=== PATIENT | male | born 1955 | race Caucasian/White ===

== ENCOUNTER → 2024-02-09 08:33 | Outpatient (REF) | payer OTHER, SELFPAY | LOC: RAD 08:33 | PROVIDERS: ATTENDING PHYSICIAN Family Medicine | DX: R63.4 Abnormal weight loss (principal) | CPT/HCPCS: 71046 ==

== ENCOUNTER → 2024-06-14 09:06 | Outpatient (REF) | payer OTHER, SELFPAY ==
[2024-06-14 09:30] VITALS: BP 154/81; BP_SYST 66
[2024-06-14 09:43] LABS: Hematocrit 38.8 % (39.0-52.0); Hemoglobin 12.2 g/dL (13.0-18.0); Mean Corp Hgb Conc. 31.4 g/dL (33.0-37.0); Mean Corpuscular Hgb 27.8 pg (27.0-31.0); Mean Corpuscular Volume 88.4 fL (80.0-94.0); Red Blood Cell Count 4.39 10^6/uL (4.70-6.10); Red Cell Dist. Width 18.7 % (11.5-14.5)
[2024-06-14 09:49] LABS: INR 0.98; PT 13.3 Sec (11.4-14.6)
[2024-06-14 10:17] LABS: Platelet Count 67 10^3/uL (130-400)
[2024-06-14 10:19] LABS: Absolute Neutrophils -Man Diff 1.1 10^3/uL (1.4-6.5); Atypical Lymphocytes 5 %; Band Neutrophils 3 % (0-3); Lymphocytes 47 % (20-51); Monocytes 11 % (2-9); Segmented Neutrophils 34 % (42-75)
[2024-06-14 10:20] LABS: Normal RBC Morphology Yes; Platelets Checked Yes; Total Cells Counted 100
[2024-06-14 10:50] VITALS: BP 129/81; BP_SYST 62
[2024-06-14 10:55] VITALS: BP 135/71; BP_SYST 65
== END ==
LOC: RADI 09:06
PROVIDERS: ATTENDING PHYSICIAN Internal Medicine Hematology & Oncology; FAMILY PHYSICIAN Family Medicine
DX: D69.6 Thrombocytopenia, unspecified (principal); D64.9 Anemia, unspecified
CPT/HCPCS: 88305; 88311; 88312; 36415; 38222; 77012; 85025; 85610; 88313

== ENCOUNTER 2024-09-20 14:13 | Emergency (ER) | payer OTHER, SELFPAY ==
[2024-09-20 14:14] VITALS: BP 176/90
[2024-09-20 14:51] LABS: ALT (SGPT) 30 U/L (0-50); AST (SGOT) 29 U/L (17-59); Albumin 4.9 g/dl (3.5-5.0); Alkaline Phosphatase 60 U/L (38-126); Blood Urea Nitrogen 21 mg/dl (9-20); Calcium 9.2 mg/dl (8.4-10.2); Carbon Dioxide 26 mmol/L (22-30); Chloride 108 mmol/L (98-107); Glucose 116 mg/dl (70-99); Potassium 4.4 mmol/L (3.5-5.1); Sodium 141 mmol/L (135-145); Total Bilirubin 0.9 mg/dl (0.2-1.3); Total Protein 7.4 g/dl (6.3-8.2); eGFR > 60.00
[2024-09-20 14:52] LABS: Hematocrit 23.5 % (39.0-52.0); Hemoglobin 7.4 g/dL (13.0-18.0); Mean Corp Hgb Conc. 31.5 g/dL (33.0-37.0); Mean Corpuscular Hgb 29.5 pg (27.0-31.0); Mean Corpuscular Volume 93.6 fL (80.0-94.0); Red Blood Cell Count 2.51 10^6/uL (4.70-6.10); Red Cell Dist. Width 25.1 % (11.5-14.5); White Blood Cell Count 3.9 10^3/uL (4.8-10.8)
[2024-09-20 15:16] LABS: Platelet Count 4 10^3/uL (130-400)
[2024-09-20 15:47] LABS: Band Neutrophils 0 % (0-3); Pathologist Reviewed Yes; Segmented Neutrophils 23 % (42-75)
[2024-09-20 15:48] LABS: Lymphocytes 44 % (20-51); Metamyelocytes 1 % (-); Monocytes 2 % (2-9); Platelets Checked Yes
[2024-09-20 15:49] LABS: Anisocytosis 3+; Macrocytosis 1+; Microcytosis 2+; Normal RBC Morphology No
[2024-09-20 15:50] LABS: Hypochromasia 2+
[2024-09-20 15:51] LABS: Total Cells Counted 100
[2024-09-20 15:57] LABS: Absolute Neutrophils -Man Diff 0.8 10^3/uL (1.4-6.5); Blasts 30 % (-)
[2024-09-20 15:58] VITALS: BMI 23.0
[2024-09-20 17:45] LABS: LDH 413 U/L (120-246)
[2024-09-20 18:00] LABS: INR 1.11; PT 14.6 Sec (11.4-14.6)
[2024-09-20 18:01] LABS: APTT 31.5 Sec (23.4-35.0); Fibrinogen 262 MG/DL (199-459)
--- NOTE | 2024-09-20 18:06 | ED.GENMED ---
History of Present Illness
General
Chief Complaint: Abnormal Lab Value
Source: patient and family
Exam Limitations: none
Time Seen by Provider: 09/20/24 16:05
Nursing documentation reviewed up to this point in time: agreed with
History of Present Illness
History of Present Illness:
Patient sent to ED for report of Hgb 7.4, platelets 4. He was diagnosed with MDS in Apr, follows with [facility]. He states oncology is continuing to monitor his labs. He had outpatient labs earlier this week as ordered by his rheumatololgist. He
was notified by box printing machine operator that his labs were concerning andt come to ED. He reports he feels well, has no complaints. notes increased bruising over the past 2 weeks.
Past History
Past History
ED Past Medical History: Other (MDS)
Review of Systems
Review of Systems
Allergies reviewed?: Yes
All Other Systems: ROS reviewed and negative except as documented in HPI and ROS
Constitutional: Reports no symptoms
EENT: Reports no symptoms
Respiratory: Reports no symptoms
Cardiac: Reports no symptoms
ABD/GI: Reports no symptoms
: Reports no symptoms
Musculoskeletal: Reports no symptoms
Skin: Reports no symptoms ( notes increased bruising over the past 2 weeks)
Neurological: Reports no symptoms
Psychiatric: Reports no symptoms
Phy Exam
General Physical Exam
General Presentation: well appearing and no apparent distress
General age: appears stated age
General Skin: warm and dry
General Habitus: normal
General Mental: alert
Cardiovascular Exam
Cardiovascular Exam: regular rate/rhythm and no edema
Pulmonary Exam
Pulmonary Exam: lungs clear and no respiratory distress
Gastrointestinal Exam
Gastrointestinal Exam: normal bowel sounds, non tender and soft
Neurological Exam
Neurological Exam: alert, oriented x3, CN II-XII intact, no motor deficits, no sensory deficits, speech normal and normal gait
Musculoskeletal Exam
Musculoskeletal Exam: full ROM and neuro vasc intact
Skin Exam
Skin Exam: normal color, warm/dry and other (multiple bruises noted to bilateral arms, left lateralhip. No active bleeding.)
Psychiatric Exam
Psychiatric Exam: normal mood/affect
Course
Orders/Labs/Results
Orders:
Orders
09/20/24 14:25
Type And Crossmatch [Type+Screen] Urgent
Complete Blood Count/With Diff Urgent
Comprehensive Metabolic Panel Urgent
Manual Differential Urgent
09/20/24 17:17
D-Dimer Urgent
Fibrinogen Urgent
LDH Urgent
PTT Urgent
Prothrombin Time Urgent
09/20/24 17:44
* Blood Bank Products Urgent
Blood Bank Products: Platelets Leukoreduced
Quantity: 2
Transfuse Today: Yes
Reason: Thrombocytopenia
Abnormal Lab Results
09/20/24 09/20/24
14:25 17:17
WBC 3.9 L 10^3/uL
(4.8-10.8)
RBC 2.51 L 10^6/uL
(4.70-6.10)
Hgb 7.4 L g/dL
(13.0-18.0)
Hct 23.5 L %
(39.0-52.0)
MCHC 31.5 L g/dL
(33.0-37.0)
RDW 25.1 H %
(11.5-14.5)
Plt Count 4 L* 10^3/uL
(130-400)
Abs Neuts (Manual) 0.8 L* 10^3/uL
(1.4-6.5)
Segmented Neutrophils 23 L %
(42-75)
Blast Cells 30 H* %
(-)
Chloride 108 H mmol/L
(98-107)
BUN 21 H mg/dl
(9-20)
Glucose 116 H mg/dl
(70-99)
Lactate Dehydrogenase 413 H U/L
(120-246)
09/20/24 14:25
09/20/24 14:25
Vital Signs
Initial and Last Documented VS:
Initial Vital Signs
Temp Pulse Resp BP Pulse Ox
98.2 F 100 18 176/90 100
09/20/24 14:14 09/20/24 14:14 09/20/24 14:14 09/20/24 14:14 09/20/24 14:14
Last Documented Vital Signs
Temp Pulse Resp BP Pulse Ox
98.2 F 75 14 125/59 99
09/20/24 20:35 09/20/24 20:35 09/20/24 20:35 09/20/24 20:35 09/20/24 20:35
*Critical Care Note
Total Time (30-74mins, 75-104mins- exclusive of procedures): Not Applicable
Update Note
Update Note:
Patient to ED for eval of abnormal outpatient labs. WBC 7.4, platelets 4 WBC 3.9, RBC 2.5 Abs neut 0.8 segs 23% Blasts 30%. Discussed lab results with Dr. Carreno. Now concern for ALL, she requests transfer to [facility]. Case discussed with Dr. Reyez
at [facility] who accepts transfer. Will transfuse 2u platelets now. DIC labs pending (request of Dr. carreno). Patient remains afebrile, no active bleeding. Discussed plan with patient and spouse and they are agreeable to plan.
ED Attending Note
-
Portions of this chart may have been created with voice recognition software.� Occasional wrong word or��sound alike� substitutions may have occurred due to the inherent limitations of voice recognition software.
Discharge Plan
Departure
Patient Disposition: Acute Care Hospital
Date of Disposition: 09/20/24
Time of Disposition: 18:05
Discharge Problem:
ALL (acute lymphocytic leukemia)
Prescriptions:
No Action
acetaminophen [Tylenol Extra Strength] 500 mg Tablet
1,000 mg PO TIDPRN PRN (Reason: mild pain)
Liver-Kidney Cleanser Capsule
1 cap PO DAILY
cyanocobalamin (vitamin B-12) 500 mcg Tablet, Sublingual
500 mcg SUBLINGUAL DAILY
[place] Tail Capsules
1 cap PO DAILY
Referrals:
Ortiz Arias MD [Family Provider] -
Hospital Transfer
Other hospital: [facility]
I certify that the patient requires transfer: Yes
Discussed case with accepting physician: Dereje
Reason for transfer: higher level of care
Interventions
Interventions:
*Risk Screen - Suicide Last Done: 09/20/24 14:14
*General Assessment Last Done: 09/20/24 14:14
*Neglect/Abuse Screening Last Done: 09/20/24 16:45
*ED- Fall Risk Assessment Last Done: 09/20/24 15:47
*ED COVID-19 Vaccine History Last Done: 09/20/24 15:47
*Nursing Disposition Last Done: 09/20/24 21:25
Discharge Date and Time
Discharge Date/Time: 09/20/24 21:25
Print Language: URDU
[2024-09-20 18:14] LABS: D-Dimer 0.37 ug/mlFEU (0.00-0.50)
[2024-09-20 18:16] VITALS: BP 147/63
[2024-09-20 18:32] VITALS: BP 147/63
[2024-09-20 18:50] VITALS: BP 142/61
[2024-09-20 19:23] VITALS: BP 139/65
--- NOTE | 2024-09-20 20:18 | EDRN ---
Jessica from [facility] called for report which consisted of her asking questions of this RN. Questions answered
[2024-09-20 20:35] VITALS: BP 125/59
--- NOTE | 2024-09-20 21:23 | EDRN ---
Report given to Acute Care crew
== END 2024-09-20 21:25 | disposition short-term general hospital (02) ==
LOC: EMR 14:13
PROVIDERS: Nurse Practitioner; EMERGENCY PHYSICIAN Emergency Medicine; FAMILY PHYSICIAN Family Medicine
DX: C91.00 Acute lymphoblastic leukemia not having achieved remission (principal); D46.9 Myelodysplastic syndrome, unspecified; D69.6 Thrombocytopenia, unspecified
CPT/HCPCS: 99283; 36430; 80053; 83615; 85025; 85379; 85384; 85610; 85730; 86850; 86900; 86901; P9073

== ENCOUNTER 2024-10-06 20:13 | Emergency (ER) | payer OTHER, SELFPAY ==
[2024-10-06 20:15] VITALS: BP 128/78
[2024-10-06 20:44] VITALS: BP 135/73
--- NOTE | 2024-10-06 21:11 | ED.GENMED ---
History of Present Illness
General
Chief Complaint: Catheter/Tube Problem
Time Seen by Provider: 10/06/24 20:42
History of Present Illness
History of Present Illness:
69-year-old male presents the emergency department for malfunction of his PICC line. It appears that he accidentally cut the extension tubing. IV team at bedside upon my evaluation he denies other complaints
Past History
Past History
ED Past Medical History: Other (MDS)
Review of Systems
Review of Systems
Allergies reviewed?: Yes
All Other Systems: ROS reviewed and negative except as documented in HPI and ROS
Phy Exam
Physical Exam
Physical Exam:
GEN: Well appearing, NAD, WDWN
HEENT: Oral mucosa moist, no scleral icterus
Cardiac: Regular rate
Lung: No respiratory distress, no tachypnea
MSK: No gross deformity or injuries, PICC line in the right upper extremity, site is clean dry and intact
Skin: Good color, no pallor or jaundice, no rashes
Neuro: AO x3, moves all extremities freely
Psych: Calm, cooperative
Course
Vital Signs
Initial and Last Documented VS:
Initial Vital Signs
Temp Pulse Resp BP Pulse Ox
98.4 F 95 16 128/78 98
10/06/24 20:15 10/06/24 20:15 10/06/24 20:15 10/06/24 20:15 10/06/24 20:15
Last Documented Vital Signs
Temp Pulse Resp BP Pulse Ox
98.4 F 86 16 135/73 99
10/06/24 20:15 10/06/24 20:44 10/06/24 20:44 10/06/24 20:44 10/06/24 20:44
MDM/Problems Addressed
MDM/Problems Addressed:
PICC line extension tubing corrected by IV team, patient with no other complaints
*Critical Care Note
Total Time (30-74mins, 75-104mins- exclusive of procedures): Not Applicable
ED Attending Note
-
Portions of this chart may have been created with voice recognition software.� Occasional wrong word or��sound alike� substitutions may have occurred due to the inherent limitations of voice recognition software.
Discharge Plan
Departure
Patient Disposition: Home (Routine Discharge)
Date of Disposition: 10/06/24
Time of Disposition: 21:11
Patient with high blood pressure during this ER visit?: No
Discharge Problem:
Status post PICC central line placement
Instructions: How to care for a peripherally inserted central catheter (PICC)
Prescriptions:
No Action
acetaminophen [Tylenol Extra Strength] 500 mg Tablet
1,000 mg PO TIDPRN PRN (Reason: mild pain)
Liver-Kidney Cleanser Capsule
1 cap PO DAILY
cyanocobalamin (vitamin B-12) 500 mcg Tablet, Sublingual
500 mcg SUBLINGUAL DAILY
[place] Tail Capsules
1 cap PO DAILY
Interventions
Interventions:
*Risk Screen - Suicide Last Done: 10/06/24 20:15
*General Assessment Last Done: 10/06/24 20:15
*Neglect/Abuse Screening Last Done: 10/06/24 20:15
*ED- Fall Risk Assessment Last Done: 10/06/24 20:34
*ED COVID-19 Vaccine History Last Done: 10/06/24 20:34
*Nursing Disposition Last Done: 10/06/24 21:20
Discharge Date and Time
Discharge Date/Time: 10/06/24 21:21
Print Language: SAMMARINESE
--- NOTE | 2024-10-06 21:13 | VATNOTE ---
VAT asked to assess patient's right PICC as patient accidently cut extension tubing. PICC in tact with dressing clean dry and intact. Under purple lumen of picc extension tubing was missing. Patient brought his own new set of extension tubing.
Tubing was primed with NSS, end of picc sterilized with several chlorhexidine swabs. PICC was then attached to extension tubing, flushed with a positive BR. Primary RN updated.
== END 2024-10-06 21:21 | disposition home or self-care (01) ==
LOC: EMR 20:13
PROVIDERS: EMERGENCY PHYSICIAN Student in an Organized Health Care Education/Training Program; FAMILY PHYSICIAN Family Medicine
DX: Z45.2 Encounter for adjustment and management of vascular access device (principal)
CPT/HCPCS: 99282

== ENCOUNTER → 2024-10-16 10:01 | Outpatient (REF) | payer OTHER, SELFPAY | LOC: HWRAD 10:01 | PROVIDERS: ATTENDING PHYSICIAN Internal Medicine Hematology & Oncology; FAMILY PHYSICIAN Family Medicine | DX: R22.42 Localized swelling, mass and lump, left lower limb (principal) | CPT/HCPCS: 93971 ==

== ENCOUNTER 2024-11-04 08:16 | Outpatient (RCR) | payer OTHER, SELFPAY ==
[2024-10-14 10:46] VITALS: BP 112/59
[2024-10-14 11:40] LABS: ALT (SGPT) 25 U/L (0-50); AST (SGOT) 21 U/L (17-59); Albumin 4.3 g/dl (3.5-5.0); Alkaline Phosphatase 62 U/L (38-126); Blood Urea Nitrogen 18 mg/dl (9-20); Calcium 9.1 mg/dl (8.4-10.2); Carbon Dioxide 26 mmol/L (22-30); Chloride 110 mmol/L (98-107); Glucose 135 mg/dl (70-99); Potassium 4.1 mmol/L (3.5-5.1); Sodium 142 mmol/L (135-145); Total Bilirubin 1.1 mg/dl (0.2-1.3); Total Protein 6.7 g/dl (6.3-8.2); eGFR > 60.00
[2024-10-14 12:47] LABS: Hematocrit 22.1 % (39.0-52.0); Hemoglobin 7.5 g/dL (13.0-18.0); Mean Corp Hgb Conc. 33.9 g/dL (33.0-37.0); Mean Corpuscular Volume 88.4 fL (80.0-94.0); Platelet Count 10 10^3/uL (130-400); Red Cell Dist. Width 16.4 % (11.5-14.5); White Blood Cell Count 0.8 10^3/uL (4.8-10.8)
[2024-10-14 12:48] LABS: Band Neutrophils 0 % (0-3); Blasts 8 % (-); Lymphocytes 84 % (20-51); Monocytes 2 % (2-9); Segmented Neutrophils 6 % (42-75)
[2024-10-14 12:49] LABS: Anisocytosis 1+; Normal RBC Morphology No; Platelets Checked Yes
[2024-10-14 12:50] LABS: Hypochromasia 1+
[2024-10-14 12:51] LABS: Total Cells Counted 100
[2024-10-15] VITALS (8 sets, daily range): BP systolic 122–139; BP diastolic 45–70
[2024-10-21 09:41] VITALS: BP 129/55
[2024-10-21 10:58] LABS: Hematocrit 22.9 % (39.0-52.0); Hemoglobin 7.6 g/dL (13.0-18.0); Mean Corp Hgb Conc. 33.2 g/dL (33.0-37.0); Mean Corpuscular Hgb 29.3 pg (27.0-31.0); Mean Corpuscular Volume 88.4 fL (80.0-94.0); Platelet Count 9 10^3/uL (130-400); Red Blood Cell Count 2.59 10^6/uL (4.70-6.10); Red Cell Dist. Width 14.6 % (11.5-14.5); White Blood Cell Count 0.7 10^3/uL (4.8-10.8)
[2024-10-21 11:47] LABS: ALT (SGPT) 15 U/L (0-50); AST (SGOT) 15 U/L (17-59); Albumin 3.9 g/dl (3.5-5.0); Alkaline Phosphatase 53 U/L (38-126); Blood Urea Nitrogen 14 mg/dl (9-20); Calcium 8.2 mg/dl (8.4-10.2); Carbon Dioxide 21 mmol/L (22-30); Chloride 114 mmol/L (98-107); Glucose 127 mg/dl (70-99); Magnesium 1.9 mg/dl (1.6-2.3); Potassium 3.3 mmol/L (3.5-5.1); Sodium 143 mmol/L (135-145); Total Protein 5.7 g/dl (6.3-8.2); eGFR > 60.00
[2024-10-21 14:25] LABS: Band Neutrophils 0 % (0-3); Lymphocytes 82 % (20-51); Monocytes 3 % (2-9); Segmented Neutrophils 4 % (42-75)
[2024-10-21 14:26] LABS: Blasts 11 % (-); Platelets Checked Yes
[2024-10-21 14:27] LABS: Normal RBC Morphology No
[2024-10-21 14:28] LABS: Acanthocytes FEW; Anisocytosis Slight; Hypochromasia 1+; Ovalocytes Slight; Total Cells Counted 100
[2024-10-22] VITALS (7 sets, daily range): BP systolic 109–139; BP diastolic 49–64
[2024-10-24 11:15] LABS: ALT (SGPT) 15 U/L (0-50); AST (SGOT) 15 U/L (17-59); Albumin 4.2 g/dl (3.5-5.0); Alkaline Phosphatase 59 U/L (38-126); Blood Urea Nitrogen 14 mg/dl (9-20); Calcium 9.3 mg/dl (8.4-10.2); Carbon Dioxide 24 mmol/L (22-30); Chloride 109 mmol/L (98-107); Glucose 133 mg/dl (70-99); Magnesium 1.8 mg/dl (1.6-2.3); Potassium 4.1 mmol/L (3.5-5.1); Sodium 141 mmol/L (135-145); Total Protein 6.6 g/dl (6.3-8.2); eGFR > 60.00
[2024-10-24 11:17] LABS: Hematocrit 21.4 % (39.0-52.0); Hemoglobin 7.6 g/dL (13.0-18.0); Mean Corp Hgb Conc. 35.5 g/dL (33.0-37.0); Mean Corpuscular Hgb 30.8 pg (27.0-31.0); Mean Corpuscular Volume 86.6 fL (80.0-94.0); Red Blood Cell Count 2.47 10^6/uL (4.70-6.10); Red Cell Dist. Width 14.5 % (11.5-14.5)
[2024-10-24 11:18] LABS: Anisocytosis Slight; Band Neutrophils 0 % (0-3); Hypochromasia 1+; Lymphocytes 83 % (20-51); Monocytes 2 % (2-9); Normal RBC Morphology No; Platelets Checked Yes; Segmented Neutrophils 9 % (42-75); Total Cells Counted 100
[2024-10-24 11:20] LABS: Blasts 6 % (-); Platelet Count 6 10^3/uL (130-400); White Blood Cell Count 0.9 10^3/uL (4.8-10.8)
[2024-10-25 10:40] VITALS: BP 127/68
[2024-10-25 11:01] VITALS: BP 114/50
[2024-10-25 11:36] VITALS: BP 112/51
[2024-10-25 12:00] VITALS: BP 112/51
[2024-10-25 12:15] VITALS: BP 116/44
[2024-10-25 14:15] VITALS: BP 110/51
[2024-10-28 10:18] VITALS: BP 115/58
[2024-10-28 11:06] LABS: ALT (SGPT) 13 U/L (0-50); AST (SGOT) 15 U/L (17-59); Albumin 4.2 g/dl (3.5-5.0); Alkaline Phosphatase 59 U/L (38-126); Blood Urea Nitrogen 13 mg/dl (9-20); Calcium 8.8 mg/dl (8.4-10.2); Carbon Dioxide 24 mmol/L (22-30); Chloride 108 mmol/L (98-107); Glucose 110 mg/dl (70-99); Potassium 4.1 mmol/L (3.5-5.1); Sodium 140 mmol/L (135-145); Total Bilirubin 0.9 mg/dl (0.2-1.3); Total Protein 6.5 g/dl (6.3-8.2); eGFR > 60.00
[2024-10-28 11:09] LABS: Hematocrit 23.3 % (39.0-52.0); Hemoglobin 7.9 g/dL (13.0-18.0); Mean Corp Hgb Conc. 33.9 g/dL (33.0-37.0); Mean Corpuscular Hgb 30.4 pg (27.0-31.0); Mean Corpuscular Volume 89.6 fL (80.0-94.0); Red Cell Dist. Width 14.3 % (11.5-14.5)
[2024-10-28 11:23] LABS: Absolute Neutrophils -Man Diff 0.5 10^3/uL (1.4-6.5); Band Neutrophils 2 % (0-3); Blasts 9 % (-); Lymphocytes 57 % (20-51); Mean Platelet Volume 9.9 fL (7.4-10.4); Metamyelocytes 2 % (-); Monocytes 8 % (2-9); Normal RBC Morphology No; Platelet Count 6 10^3/uL (130-400); Platelets Checked Yes; Segmented Neutrophils 22 % (42-75); White Blood Cell Count 2.3 10^3/uL (4.8-10.8)
[2024-10-28 11:24] LABS: Anisocytosis 1+; Hypochromasia 1+; Polychromasia Slight; Total Cells Counted 100
[2024-10-29] VITALS (7 sets, daily range): BP systolic 112–117; BP diastolic 53–57
[2024-10-30 09:27] VITALS: BP 120/57
[2024-10-30 09:39] LABS: Hemoglobin 9.1 g/dL (13.0-18.0); Mean Corp Hgb Conc. 33.7 g/dL (33.0-37.0); Mean Corpuscular Hgb 30.5 pg (27.0-31.0); Mean Corpuscular Volume 90.6 fL (80.0-94.0); Platelet Count 11 10^3/uL (130-400); Red Blood Cell Count 2.98 10^6/uL (4.70-6.10); Red Cell Dist. Width 14.5 % (11.5-14.5)
[2024-10-30 09:43] LABS: ALT (SGPT) 14 U/L (0-50); AST (SGOT) 16 U/L (17-59); Albumin 4.6 g/dl (3.5-5.0); Alkaline Phosphatase 64 U/L (38-126); Blood Urea Nitrogen 14 mg/dl (9-20); Carbon Dioxide 25 mmol/L (22-30); Chloride 111 mmol/L (98-107); Glucose 99 mg/dl (70-99); Potassium 4.1 mmol/L (3.5-5.1); Sodium 142 mmol/L (135-145); Total Bilirubin 0.9 mg/dl (0.2-1.3); Total Protein 6.8 g/dl (6.3-8.2); eGFR > 60.00
[2024-10-30 09:45] VITALS: BP 115/52
[2024-10-30 10:21] VITALS: BP 120/47
[2024-10-30] MEDS: ALOXI 5 MG IV (10:55)
[2024-10-30] MEDS: DECADRON 50.8 MG IV (10:55)
[2024-10-30 11:00] LABS: Absolute Neutrophils -Man Diff 1.1 10^3/uL (1.4-6.5); Band Neutrophils 2 % (0-3); Lymphocytes 56 % (20-51); Monocytes 6 % (2-9); Segmented Neutrophils 36 % (42-75)
[2024-10-30 11:01] LABS: Anisocytosis 1+; Hypochromasia 1+; Normal RBC Morphology No; Ovalocytes 1+; Platelets Checked Yes; Polychromasia 1+
[2024-10-30 11:02] LABS: Total Cells Counted 100
[2024-10-30] MEDS: VIDAZA 114.8 MG IV (11:25)
[2024-10-31 09:04] VITALS: BP 118/51
[2024-10-31] MEDS: VIDAZA 114.8 MG IV (09:14)
[2024-10-31 09:19] LABS: Hematocrit 26.8 % (39.0-52.0); Hemoglobin 9.2 g/dL (13.0-18.0); Mean Corp Hgb Conc. 34.3 g/dL (33.0-37.0); Mean Corpuscular Hgb 31.3 pg (27.0-31.0); Mean Corpuscular Volume 91.2 fL (80.0-94.0); Mean Platelet Volume 9.4 fL (7.4-10.4); Platelet Count 18 10^3/uL (130-400); Red Blood Cell Count 2.94 10^6/uL (4.70-6.10); Red Cell Dist. Width 15.7 % (11.5-14.5)
[2024-10-31 10:16] LABS: Absolute Neutrophils -Man Diff 2.2 10^3/uL (1.4-6.5); Band Neutrophils 1 % (0-3); Blasts 10 % (-); Lymphocytes 23 % (20-51); Metamyelocytes 1 % (-); Monocytes 10 % (2-9); Segmented Neutrophils 55 % (42-75)
[2024-10-31 10:17] LABS: Anisocytosis 1+; Hypochromasia 1+; Normal RBC Morphology No; Platelets Checked Yes; Polychromasia 1+
[2024-10-31 10:18] LABS: Acanthocytes 1+; Total Cells Counted 100
[2024-10-31 10:43] VITALS: BP 118/51
[2024-10-31 11:02] VITALS: BP 119/56
[2024-10-31 11:41] VITALS: BP 117/51
[2024-11-01 09:04] VITALS: BP 122/58
[2024-11-01 09:15] LABS: Hematocrit 26.5 % (39.0-52.0); Hemoglobin 8.9 g/dL (13.0-18.0); Mean Corp Hgb Conc. 33.6 g/dL (33.0-37.0); Mean Corpuscular Hgb 31.3 pg (27.0-31.0); Mean Corpuscular Volume 93.3 fL (80.0-94.0); Mean Platelet Volume 10.1 fL (7.4-10.4); Platelet Count 24 10^3/uL (130-400); Red Blood Cell Count 2.84 10^6/uL (4.70-6.10); White Blood Cell Count 2.9 10^3/uL (4.8-10.8)
[2024-11-01] MEDS: VIDAZA 114.8 MG IV (09:17)
[2024-11-01 09:57] LABS: % Basophils 0.3 % (0-2); % Lymphocytes 31.4 % (20.5-51.1); % Monocytes 15.3 % (1.7-9.3); Absolute Lymphocytes 0.9 10^3/uL (1.2-3.4); Absolute Monocytes 0.4 10^3/uL (0.1-0.6); Absolute Neutrophils 1.5 10^3/uL (1.4-6.5); Nucleated Red Blood Cells % 0 % (-)
[2024-11-01 10:48] VITALS: BP 102/49
[2024-11-01 11:06] VITALS: BP 120/41
[2024-11-01 11:51] VITALS: BP 107/49
[2024-11-04 08:30] VITALS: BP 129/65
[2024-11-04 09:34] LABS: Hematocrit 29.7 % (39.0-52.0); Hemoglobin 9.9 g/dL (13.0-18.0); Mean Corp Hgb Conc. 33.3 g/dL (33.0-37.0); Mean Corpuscular Hgb 31.8 pg (27.0-31.0); Mean Corpuscular Volume 95.5 fL (80.0-94.0); Red Blood Cell Count 3.11 10^6/uL (4.70-6.10); Red Cell Dist. Width 18.7 % (11.5-14.5)
[2024-11-04 09:51] LABS: Mean Platelet Volume 11.9 fL (7.4-10.4); Monocytes 5 % (2-9); Platelet Count 32 10^3/uL (130-400)
[2024-11-04] MEDS: VIDAZA 114.8 MG IV (09:55)
[2024-11-04] MEDS: ALOXI 5 MG IV (09:55)
[2024-11-04 09:59] LABS: Absolute Neutrophils -Man Diff 1.7 10^3/uL (1.4-6.5); Band Neutrophils 3 % (0-3); Lymphocytes 29 % (20-51); Segmented Neutrophils 56 % (42-75)
[2024-11-04 10:00] LABS: Acanthocytes 1+; Anisocytosis 1+; Blasts 2 % (-); Eosinophils 5 % (0-6); Hypochromasia 1+; Normal RBC Morphology No; Ovalocytes 1+; Platelets Checked Yes; Polychromasia 1+; Total Cells Counted 100
--- NOTE | 2024-11-04 10:38 | SURV.CONR ---
Survivorship Consultation
- -
Met patient at bedside. Referral received from Tiera MARCANO RN. Patient currently undergoing treatment for AML. Feeling well with exception of fatigue at times, achilles tendinitis, and neuropathy to feet. Platelet count today 32. Discussed
rest for achilles and ice which he states he has been doing. Has appt with Dr. Matias today to discuss next steps in treatment and possible transplant. Discussed limited options for achilles given DVT and thombocytopenia. Has developed neuropathy
to feet. Will continue to follow.
== END 2024-11-04 14:22 | disposition home or self-care (01) ==
LOC: OID 08:16
PROVIDERS: ATTENDING PHYSICIAN Internal Medicine Hematology & Oncology; FAMILY PHYSICIAN Family Medicine
DX: Z51.11 Encounter for antineoplastic chemotherapy (principal); D69.6 Thrombocytopenia, unspecified (principal); D46.9 Myelodysplastic syndrome, unspecified; D64.9 Anemia, unspecified; D72.819 Decreased white blood cell count, unspecified; M35.3 Polymyalgia rheumatica; Z87.891 Personal history of nicotine dependence
CPT/HCPCS: 36430; 36591; 80053; 83735; 85025; 86850; 86900; 86901; 86920; 96367; 96375; 96413; J2469; J9025; P9058; P9073

== ENCOUNTER 2024-12-05 08:50 | Outpatient (RCR) | payer OTHER, SELFPAY ==
[2024-11-05 08:30] VITALS: BP 133/57; BMI 22.3
[2024-11-05] MEDS: VIDAZA 114.8 MG IV (09:10)
[2024-11-05 10:16] LABS: Hematocrit 30.2 % (39.0-52.0); Hemoglobin 10.0 g/dL (13.0-18.0); Mean Corp Hgb Conc. 33.1 g/dL (33.0-37.0); Mean Corpuscular Volume 95.9 fL (80.0-94.0); Nucleated Red Blood Cells % 0 % (-); Platelet Count 28 10^3/uL (130-400); Red Cell Dist. Width 19.5 % (11.5-14.5)
[2024-11-06 09:15] VITALS: BP 130/62
[2024-11-06 09:29] LABS: Hematocrit 30.0 % (39.0-52.0); Hemoglobin 10.0 g/dL (13.0-18.0); Mean Corp Hgb Conc. 33.3 g/dL (33.0-37.0); Mean Corpuscular Volume 95.5 fL (80.0-94.0); Nucleated Red Blood Cells % 0 % (-); Platelet Count 31 10^3/uL (130-400); Red Cell Dist. Width 19.9 % (11.5-14.5)
[2024-11-06] MEDS: ALOXI 5 MG IV (09:29)
[2024-11-06] MEDS: VIDAZA 114.8 MG IV (09:30)
[2024-11-07 08:30] VITALS: BP 135/69
[2024-11-07] MEDS: VIDAZA 114.8 MG IV (09:00)
[2024-11-07 09:31] LABS: Hematocrit 29.8 % (39.0-52.0); Hemoglobin 10.0 g/dL (13.0-18.0); Mean Corp Hgb Conc. 33.6 g/dL (33.0-37.0); Mean Corpuscular Volume 94.6 fL (80.0-94.0); Nucleated Red Blood Cells % 0 % (-); Platelet Count 35 10^3/uL (130-400); Red Cell Dist. Width 20.2 % (11.5-14.5)
[2024-11-11 10:06] VITALS: BP 126/58
[2024-11-11 11:45] LABS: Hematocrit 31.0 % (39.0-52.0); Hemoglobin 10.3 g/dL (13.0-18.0); Mean Corp Hgb Conc. 33.2 g/dL (33.0-37.0); Mean Corpuscular Volume 97.8 fL (80.0-94.0); Red Cell Dist. Width 21.3 % (11.5-14.5)
[2024-11-11 11:59] LABS: Nucleated Red Blood Cells % 0 % (-); Platelet Count 56 10^3/uL (130-400)
[2024-11-14 09:02] VITALS: BP 141/75
[2024-11-14 09:50] LABS: Hematocrit 31.7 % (39.0-52.0); Hemoglobin 10.6 g/dL (13.0-18.0); Mean Corp Hgb Conc. 33.4 g/dL (33.0-37.0); Mean Corpuscular Volume 96.9 fL (80.0-94.0); Platelet Count 55 10^3/uL (130-400); Red Cell Dist. Width 22.0 % (11.5-14.5)
[2024-11-14 10:54] LABS: Nucleated Red Blood Cells % 0 % (-)
[2024-11-18 09:21] VITALS: BP 140/71
[2024-11-18 10:19] LABS: Hematocrit 29.9 % (39.0-52.0); Hemoglobin 10.2 g/dL (13.0-18.0); Mean Corp Hgb Conc. 34.1 g/dL (33.0-37.0); Mean Corpuscular Volume 100.0 fL (80.0-94.0); Platelet Count 32 10^3/uL (130-400); Red Cell Dist. Width 21.6 % (11.5-14.5)
[2024-11-18 10:56] LABS: Nucleated Red Blood Cells % 0 % (-)
[2024-11-18 12:24] LABS: ALT (SGPT) 16 U/L (0-50); AST (SGOT) 19 U/L (17-59); Albumin 4.6 g/dl (3.5-5.0); Alkaline Phosphatase 55 U/L (38-126); Blood Urea Nitrogen 14 mg/dl (9-20); Calcium 8.9 mg/dl (8.4-10.2); Carbon Dioxide 25 mmol/L (22-30); Chloride 108 mmol/L (98-107); Estimated Creatinine Clearance 122 ml/min; Glucose 100 mg/dl (70-99); Magnesium 2.0 mg/dl (1.6-2.3); Potassium 4.0 mmol/L (3.5-5.1); Sodium 139 mmol/L (135-145); Total Protein 6.5 g/dl (6.3-8.2); eGFR > 60.00
[2024-11-21 09:15] VITALS: BP 145/61
[2024-11-21 09:30] LABS: Hematocrit 30.0 % (39.0-52.0); Hemoglobin 9.9 g/dL (13.0-18.0); Mean Corp Hgb Conc. 33.0 g/dL (33.0-37.0); Mean Corpuscular Volume 103.1 fL (80.0-94.0); Platelet Count 25 10^3/uL (130-400); Red Cell Dist. Width 21.6 % (11.5-14.5)
[2024-11-21 11:17] LABS: ALT (SGPT) 17 U/L (0-50); AST (SGOT) 19 U/L (17-59); Albumin 4.4 g/dl (3.5-5.0); Alkaline Phosphatase 58 U/L (38-126); Blood Urea Nitrogen 17 mg/dl (9-20); Calcium 9.4 mg/dl (8.4-10.2); Carbon Dioxide 25 mmol/L (22-30); Chloride 110 mmol/L (98-107); Estimated Creatinine Clearance 122 ml/min; Glucose 93 mg/dl (70-99); Magnesium 2.0 mg/dl (1.6-2.3); Potassium 4.2 mmol/L (3.5-5.1); Sodium 139 mmol/L (135-145); Total Protein 6.7 g/dl (6.3-8.2); eGFR > 60.00
[2024-11-25 09:16] VITALS: BP 118/64
[2024-11-25 10:11] LABS: ALT (SGPT) 15 U/L (0-50); AST (SGOT) 17 U/L (17-59); Albumin 4.5 g/dl (3.5-5.0); Alkaline Phosphatase 52 U/L (38-126); Blood Urea Nitrogen 14 mg/dl (9-20); Calcium 9.1 mg/dl (8.4-10.2); Carbon Dioxide 28 mmol/L (22-30); Chloride 107 mmol/L (98-107); Estimated Creatinine Clearance 122 ml/min; Glucose 102 mg/dl (70-99); Magnesium 2.1 mg/dl (1.6-2.3); Potassium 4.3 mmol/L (3.5-5.1); Sodium 138 mmol/L (135-145); Total Protein 6.6 g/dl (6.3-8.2); eGFR > 60.00
[2024-11-25 10:17] LABS: Hematocrit 26.6 % (39.0-52.0); Hemoglobin 9.1 g/dL (13.0-18.0); Mean Corp Hgb Conc. 34.2 g/dL (33.0-37.0); Mean Corpuscular Volume 101.9 fL (80.0-94.0); Red Cell Dist. Width 21.4 % (11.5-14.5)
[2024-11-25 10:18] LABS: Absolute Neutrophils -Man Diff 0.8 10^3/uL (1.4-6.5); Platelet Count 6 10^3/uL (130-400); Platelets Checked Yes
[2024-11-25 10:19] LABS: Anisocytosis 1+; Hypochromasia 1+; Normal RBC Morphology No; Ovalocytes FEW; Polychromasia 1+; Total Cells Counted 100
--- NOTE | 2024-11-25 14:49 | PTCARENOTE ---
1230 Critical lab result tiger text to Dr. Sharon Smallwood ANC 800, Platelet count 6,000. Pt is afebrile. Pt has some bruising, denies any bleeding. Pt set up for platelet transfusion tomorrow. Bleeding and Neutropenic precautions reviewed with
patient. Pt stated has good understanding.
[2024-11-26 08:57] VITALS: BP 140/69
[2024-11-26 09:15] VITALS: BP 116/50
[2024-11-26 10:01] VITALS: BP 118/50
[2024-11-27 09:15] VITALS: BP 142/51
[2024-11-27] MEDS: ALOXI 5 MG IV (09:41)
[2024-11-27] MEDS: DECADRON 50.8 MG IV (09:41)
[2024-11-27 10:13] LABS: Hematocrit 24.9 % (39.0-52.0); Hemoglobin 8.6 g/dL (13.0-18.0); Mean Corp Hgb Conc. 34.5 g/dL (33.0-37.0); Mean Corpuscular Volume 101.2 fL (80.0-94.0); Red Cell Dist. Width 21.1 % (11.5-14.5)
[2024-11-27] MEDS: VIDAZA 114.8 MG IV (10:14)
[2024-11-27 10:32] LABS: Platelets Checked Yes
[2024-11-27 10:35] LABS: Anisocytosis 1+; Normal RBC Morphology No; Ovalocytes 1+; Polychromasia Slight
[2024-11-27 10:36] LABS: Acanthocytes 1+; Hypochromasia 1+; Total Cells Counted 100
[2024-11-27 10:39] LABS: Platelet Count 12 10^3/uL (130-400)
[2024-11-27 10:40] LABS: Absolute Neutrophils -Man Diff 0.2 10^3/uL (1.4-6.5)
[2024-11-27 11:10] VITALS: BP 129/53
[2024-11-27 11:28] VITALS: BP 103/45
[2024-11-27 12:06] VITALS: BP 116/47
[2024-11-28 09:51] VITALS: BP 139/61
[2024-11-28] MEDS: VIDAZA 114.8 MG IV (09:58)
[2024-11-29] MEDS: VIDAZA 114.8 MG IV (09:54)
[2024-11-29 09:58] VITALS: BP 108/46
[2024-11-29 10:03] LABS: Hematocrit 23.2 % (39.0-52.0); Hemoglobin 8.0 g/dL (13.0-18.0); Mean Corp Hgb Conc. 34.5 g/dL (33.0-37.0); Mean Corpuscular Volume 101.3 fL (80.0-94.0); Platelet Count 14 10^3/uL (130-400); Red Cell Dist. Width 21.2 % (11.5-14.5)
[2024-11-29 10:35] LABS: Anisocytosis Slight; Normal RBC Morphology No; Platelets Checked Yes
[2024-11-29 10:36] LABS: Tear Drop Red Blood Cells Slight; Total Cells Counted 100
[2024-11-29 10:40] LABS: Absolute Neutrophils -Man Diff 0.1 10^3/uL (1.4-6.5)
[2024-11-29 11:11] VITALS: BP 122/52
[2024-11-29 11:28] VITALS: BP 102/46
[2024-11-29 12:08] VITALS: BP 102/41
[2024-12-02] MEDS: ALOXI 5 MG IV (10:38)
[2024-12-02 10:44] VITALS: BP 146/64
[2024-12-02] MEDS: VIDAZA 114.8 MG IV (10:53)
[2024-12-02 11:37] LABS: Hematocrit 23.5 % (39.0-52.0); Hemoglobin 8.1 g/dL (13.0-18.0); Mean Corp Hgb Conc. 34.5 g/dL (33.0-37.0); Mean Corpuscular Volume 100.4 fL (80.0-94.0); Red Cell Dist. Width 20.1 % (11.5-14.5)
[2024-12-02 11:56] VITALS: BP 132/51
[2024-12-02 12:13] VITALS: BP 125/56
[2024-12-02 12:16] LABS: Normal RBC Morphology Yes; Platelets Checked Yes; Total Cells Counted 100
[2024-12-02 12:17] LABS: Absolute Neutrophils -Man Diff 0.0 10^3/uL (1.4-6.5); Platelet Count 9 10^3/uL (130-400)
[2024-12-02 12:59] VITALS: BP 132/53
[2024-12-03] MEDS: VIDAZA 114.8 MG IV (09:29)
[2024-12-03 11:29] VITALS: BP 127/56
[2024-12-04] VITALS (8 sets, daily range): BP systolic 120–146; BP diastolic 49–64
[2024-12-04 09:34] LABS: Mean Corp Hgb Conc. 34.8 g/dL (33.0-37.0); Mean Corpuscular Volume 102.5 fL (80.0-94.0); Red Cell Dist. Width 19.3 % (11.5-14.5)
[2024-12-04 09:36] LABS: Hematocrit 20.7 % (39.0-52.0); Hemoglobin 7.2 g/dL (13.0-18.0)
[2024-12-04 09:37] LABS: Platelet Count 8 10^3/uL (130-400)
[2024-12-04] MEDS: ALOXI 5 MG IV (09:58)
[2024-12-04] MEDS: VIDAZA 114.8 MG IV (09:59)
[2024-12-05 09:30] VITALS: BP 172/74
[2024-12-05] MEDS: VIDAZA 114.8 MG IV (09:33)
[2024-12-05 10:10] VITALS: BP 165/82
== END 2024-12-05 15:12 | disposition home or self-care (01) ==
LOC: OID 08:50
PROVIDERS: ATTENDING PHYSICIAN Internal Medicine Hematology & Oncology; FAMILY PHYSICIAN Family Medicine
DX: D69.6 Thrombocytopenia, unspecified (principal); D64.9 Anemia, unspecified; Z51.11 Encounter for antineoplastic chemotherapy; D72.819 Decreased white blood cell count, unspecified; M35.3 Polymyalgia rheumatica; Z87.891 Personal history of nicotine dependence
CPT/HCPCS: 36430; 36591; 80053; 83735; 85025; 86850; 86900; 86901; 86920; 96367; 96375; 96413; J2469; J9025; P9058; P9073

== ENCOUNTER → 2024-12-26 14:18 | Outpatient (REF) | payer OTHER, SELFPAY | LOC: RCS 14:18 | PROVIDERS: ATTENDING PHYSICIAN Nurse Practitioner; FAMILY PHYSICIAN Family Medicine | DX: C92.00 Acute myeloblastic leukemia, not having achieved remission (principal) | CPT/HCPCS: 93306 ==

== ENCOUNTER → 2024-12-30 13:15 | Outpatient (REF) | payer OTHER, SELFPAY ==
[2024-12-30 13:35] VITALS: BP 131/61; BP_SYST 71
== END ==
LOC: RADI 13:15
PROVIDERS: ATTENDING PHYSICIAN Nurse Practitioner Adult Health; FAMILY PHYSICIAN Family Medicine
DX: D72.829 Elevated white blood cell count, unspecified (principal); D46.1 Refractory anemia with ring sideroblasts; D69.9 Hemorrhagic condition, unspecified
CPT/HCPCS: 36573; C1751

== ENCOUNTER 2025-01-03 08:20 | Outpatient (RCR) | payer OTHER, SELFPAY ==
[2024-12-06 09:30] VITALS: BP 142/65
[2024-12-06 10:12] LABS: Hematocrit 23.2 % (39.0-52.0); Hemoglobin 7.9 g/dL (13.0-18.0); Mean Corp Hgb Conc. 34.1 g/dL (33.0-37.0); Mean Corpuscular Volume 101.8 fL (80.0-94.0); Nucleated Red Blood Cells % 0 % (-); Platelet Count 8 10^3/uL (130-400); Red Cell Dist. Width 18.5 % (11.5-14.5)
[2024-12-06 10:52] VITALS: BP 125/53
[2024-12-06 11:11] VITALS: BP 130/48
[2024-12-06 11:51] VITALS: BP 121/52
[2024-12-09] VITALS (9 sets, daily range): BP systolic 100–134; BP diastolic 40–58
[2024-12-09 09:31] LABS: Mean Corp Hgb Conc. 35.1 g/dL (33.0-37.0); Mean Corpuscular Volume 102.1 fL (80.0-94.0); Red Cell Dist. Width 17.3 % (11.5-14.5)
[2024-12-09 09:40] LABS: Hematocrit 19.1 % (39.0-52.0); Hemoglobin 6.7 g/dL (13.0-18.0); Platelet Count 4 10^3/uL (130-400)
[2024-12-09 10:07] LABS: ALT (SGPT) 15 U/L (0-50); AST (SGOT) 15 U/L (17-59); Albumin 4.3 g/dl (3.5-5.0); Alkaline Phosphatase 48 U/L (38-126); Blood Urea Nitrogen 17 mg/dl (9-20); Calcium 9.2 mg/dl (8.4-10.2); Carbon Dioxide 25 mmol/L (22-30); Chloride 107 mmol/L (98-107); Glucose 133 mg/dl (70-99); Magnesium 2.0 mg/dl (1.6-2.3); Potassium 3.9 mmol/L (3.5-5.1); Sodium 137 mmol/L (135-145); Total Protein 6.3 g/dl (6.3-8.2); eGFR > 60.00
[2024-12-11] VITALS (8 sets, daily range): BP systolic 102–117; BP diastolic 30–48
[2024-12-11 08:07] LABS: Hematocrit 22.1 % (39.0-52.0); Hemoglobin 7.7 g/dL (13.0-18.0); Mean Corp Hgb Conc. 34.8 g/dL (33.0-37.0); Mean Corpuscular Volume 97.8 fL (80.0-94.0); Red Cell Dist. Width 19.0 % (11.5-14.5)
[2024-12-11 08:13] LABS: Platelet Count 12 10^3/uL (130-400)
--- NOTE | 2024-12-11 08:57 | PTCARENOTE ---
0820 Pt here today for Labwork. Critical results TT to Dr. Sharon Smallwood. Platelets 12,000 HGB at 7.7 Pt will receive 1 unit platelets and 1 unit PRBC Irradiated/CMV neg. Pt for follow up labs on Monday12/13/24.
[2024-12-13 08:35] VITALS: BP 113/50
[2024-12-13 09:09] LABS: Hematocrit 25.0 % (39.0-52.0); Hemoglobin 8.6 g/dL (13.0-18.0); Mean Corp Hgb Conc. 34.4 g/dL (33.0-37.0); Mean Corpuscular Volume 96.2 fL (80.0-94.0); Nucleated Red Blood Cells % 0 % (-); Platelet Count 9 10^3/uL (130-400); Red Cell Dist. Width 18.1 % (11.5-14.5)
[2024-12-13 09:57] VITALS: BP 113/50
[2024-12-13 10:14] VITALS: BP 102/49
[2024-12-13 10:50] VITALS: BP 101/47
[2024-12-16 07:55] VITALS: BP 106/45
[2024-12-16 08:34] LABS: Hematocrit 24.9 % (39.0-52.0); Hemoglobin 8.4 g/dL (13.0-18.0); Mean Corp Hgb Conc. 33.7 g/dL (33.0-37.0); Mean Corpuscular Volume 98.0 fL (80.0-94.0); Platelet Count 9 10^3/uL (130-400); Red Cell Dist. Width 17.9 % (11.5-14.5)
[2024-12-16 08:50] VITALS: BP 106/45
[2024-12-16 09:07] VITALS: BP 103/51
[2024-12-16 09:18] LABS: ALT (SGPT) 19 U/L (0-50); AST (SGOT) 18 U/L (17-59); Albumin 4.4 g/dl (3.5-5.0); Alkaline Phosphatase 54 U/L (38-126); Blood Urea Nitrogen 16 mg/dl (9-20); Calcium 9.0 mg/dl (8.4-10.2); Carbon Dioxide 23 mmol/L (22-30); Chloride 108 mmol/L (98-107); Glucose 154 mg/dl (70-99); Magnesium 2.0 mg/dl (1.6-2.3); Potassium 3.7 mmol/L (3.5-5.1); Sodium 140 mmol/L (135-145); Total Protein 6.3 g/dl (6.3-8.2); eGFR > 60.00
[2024-12-16 09:36] VITALS: BP 111/57
[2024-12-16 10:21] LABS: Anisocytosis 1+; Hypochromasia 1+; Normal RBC Morphology No; Ovalocytes 1+; Platelets Checked Yes; Polychromasia 1+; Total Cells Counted 100
[2024-12-16 10:22] LABS: Absolute Neutrophils -Man Diff 0.1 10^3/uL (1.4-6.5)
[2024-12-19 09:50] VITALS: BP 115/53
[2024-12-19 10:07] LABS: Hematocrit 24.3 % (39.0-52.0); Hemoglobin 8.2 g/dL (13.0-18.0); Mean Corp Hgb Conc. 33.7 g/dL (33.0-37.0); Mean Corpuscular Volume 100.4 fL (80.0-94.0); Red Cell Dist. Width 17.8 % (11.5-14.5)
[2024-12-19 10:08] LABS: Platelet Count 8 10^3/uL (130-400)
[2024-12-19 10:24] VITALS: BP 115/53
[2024-12-19 10:41] VITALS: BP 110/51
[2024-12-19 11:05] LABS: ALT (SGPT) 18 U/L (0-50); AST (SGOT) 16 U/L (17-59); Albumin 4.4 g/dl (3.5-5.0); Alkaline Phosphatase 57 U/L (38-126); Blood Urea Nitrogen 16 mg/dl (9-20); Calcium 8.7 mg/dl (8.4-10.2); Carbon Dioxide 23 mmol/L (22-30); Chloride 109 mmol/L (98-107); Glucose 102 mg/dl (70-99); Magnesium 2.0 mg/dl (1.6-2.3); Potassium 4.2 mmol/L (3.5-5.1); Sodium 138 mmol/L (135-145); Total Protein 6.3 g/dl (6.3-8.2); eGFR > 60.00
[2024-12-19 11:06] VITALS: BP 106/53
[2024-12-23 10:02] VITALS: BP 128/60
[2024-12-23 10:22] LABS: Hematocrit 24.3 % (39.0-52.0); Hemoglobin 8.2 g/dL (13.0-18.0); Mean Corp Hgb Conc. 33.7 g/dL (33.0-37.0); Mean Corpuscular Volume 100.0 fL (80.0-94.0); Platelet Count 8 10^3/uL (130-400); Red Cell Dist. Width 19.4 % (11.5-14.5)
[2024-12-23 10:44] LABS: ALT (SGPT) 19 U/L (0-50); AST (SGOT) 16 U/L (17-59); Albumin 4.4 g/dl (3.5-5.0); Alkaline Phosphatase 56 U/L (38-126); Blood Urea Nitrogen 16 mg/dl (9-20); Calcium 9.0 mg/dl (8.4-10.2); Carbon Dioxide 25 mmol/L (22-30); Chloride 108 mmol/L (98-107); Glucose 108 mg/dl (70-99); Magnesium 2.2 mg/dl (1.6-2.3); Potassium 4.2 mmol/L (3.5-5.1); Sodium 138 mmol/L (135-145); Total Protein 6.6 g/dl (6.3-8.2); eGFR > 60.00
[2024-12-23 11:48] LABS: Absolute Neutrophils -Man Diff 0.0 10^3/uL (1.4-6.5); Anisocytosis Slight; Normal RBC Morphology No; Platelets Checked Yes; Polychromasia Slight; Total Cells Counted 100
[2024-12-24 08:30] VITALS: BP 117/50
[2024-12-24 08:47] VITALS: BP 99/49
[2024-12-24 09:27] VITALS: BP 102/50
[2024-12-27] VITALS (8 sets, daily range): BP systolic 99–135; BP diastolic 43–51
[2024-12-27 09:57] LABS: Hematocrit 22.9 % (39.0-52.0); Hemoglobin 7.8 g/dL (13.0-18.0); Mean Corp Hgb Conc. 34.1 g/dL (33.0-37.0); Mean Corpuscular Volume 101.3 fL (80.0-94.0); Platelet Count 7 10^3/uL (130-400); Red Cell Dist. Width 20.0 % (11.5-14.5)
--- NOTE | 2024-12-27 10:01 | PTCARENOTE ---
Addendum entered by Tiera Roger RN 12/27/24 15:55:
1500-Communication between Emre, Dr. Reyez, Dr. Smallwood and Rashmi Harris NP wit regards to PICC line. Decision was made to DC PICC line,. Scripts sent for Augmentin 500mg BID x 5 days and to apply Ketoconazole 2%, Q12 to affected area until
resolved. Pt educated by Rashmi Harris NP
Pt to follow up on Monday, labs , Vidaza and Blood products as needed per parameters.
Right PICC line removed without incident, total of 45cm removed. Pictures of affected are taken for documentation and reddened area outlined for follow up. Pt discharged in godd condition. Has good understanding of all instructions.
Addendum entered by Tiear Roger RN 12/27/24 12:58:
1019-dr Smallwood notified of events via tiger text.
Spoke to Constance DELGADILLO from Dr. Reyez office, she will fax order for chest xray for placement.
1230 Still waiting for order for chest xray. Rashmi Harris NP seeing patient. Waiting for further contact from [facility]
Original Note:
Pt here today for follow up lab draw. Right PICC site has noted redness at insertion site. Pt followed by [facility] for PICC maintenance. Pt states home infusion nurse was at patients home yesterday to change PICC dressing and noted redness
and some drainage at site, nurse removed BIO-patch. Also original insertion report 2cm external catheter length , now at 4cm external length. Constance DELGADILLO for Dr Reyez at [facility] notified with pictures via patient portal contact. Pt is afebrile at this
time.
[2024-12-27 10:52] LABS: Absolute Neutrophils -Man Diff 0.1 10^3/uL (1.4-6.5); Anisocytosis Slight; Hypochromasia Slight; Normal RBC Morphology No; Platelets Checked Yes; Total Cells Counted 100
--- NOTE | 2024-12-27 16:07 | W.PN.UPDATE ---
Update Note
- Progress Note Update
12/27/24 16:07
Patient seen in [facility] for PICC line assessment. Erythema [id number] noted to under dressing. Here today and received 1 unit platelets and 1 unit PRBC. Patient currently being treated by Dr. Reyez at [facility] and Dr. Smallwood at [facility]. Spoke with RN in
Dr. Reyez's office Constance who was in contact with Dr. Reyez regarding PICC plan. Plan to start abx augmentin 500mg bid x5 days prophylactic and discuss with Dr. Smallwood PICC plan. Discussed with Dr. Smallwood and decision was made to pull PICC
line and replace Monday. Dr. Reyez's office made aware. Patient educated on neutropenic precautions, bleeding precautions and s/s of infection. After discussion with Dr. Smallwood plan to start ketoconazole 2% and apply to PICC line site. Rx
provided to patient and educated on how to use. He has our contact information and was reminded to call electronic industrial controls mechanic MD for any worsening/new symptoms. Plan to return Monday for double lumen PICC line placement. Will need platelets >20 to receive PICC
line. Orders placed. Scheduled for Monday. Will reassess Monday.
[2024-12-30] MEDS: DECADRON 50.8 MG IV (08:58)
[2024-12-30] MEDS: ALOXI 5 MG IV (08:58)
[2024-12-30 09:04] LABS: Hematocrit 26.2 % (39.0-52.0); Hemoglobin 8.8 g/dL (13.0-18.0); Mean Corp Hgb Conc. 33.6 g/dL (33.0-37.0); Mean Corpuscular Volume 100.4 fL (80.0-94.0); Platelet Count 9 10^3/uL (130-400); Red Cell Dist. Width 19.9 % (11.5-14.5)
[2024-12-30 09:18] LABS: ALT (SGPT) 21 U/L (0-50); AST (SGOT) 17 U/L (17-59); Albumin 4.6 g/dl (3.5-5.0); Alkaline Phosphatase 55 U/L (38-126); Blood Urea Nitrogen 14 mg/dl (9-20); Calcium 8.8 mg/dl (8.4-10.2); Carbon Dioxide 26 mmol/L (22-30); Chloride 107 mmol/L (98-107); Glucose 112 mg/dl (70-99); Magnesium 2.2 mg/dl (1.6-2.3); Potassium 3.9 mmol/L (3.5-5.1); Sodium 140 mmol/L (135-145); Total Protein 6.8 g/dl (6.3-8.2); eGFR > 60.00
[2024-12-30] MEDS: VIDAZA 114.8 MG IV (09:30)
[2024-12-30 10:04] VITALS: BP 120/57
[2024-12-30 10:37] VITALS: BP 120/57
[2024-12-30 10:55] VITALS: BP 106/41
[2024-12-30 11:31] VITALS: BP 109/45
[2024-12-30 12:30] LABS: Platelet Count 14 10^3/uL (130-400)
[2024-12-30 14:53] LABS: Platelets Checked Yes
[2024-12-30 14:54] LABS: Acanthocytes 1+; Anisocytosis 1+; Hypochromasia FEW; Normal RBC Morphology No; Ovalocytes 1+; Polychromasia FEW; Spherocytes 1+; Total Cells Counted 100
[2024-12-30 14:57] LABS: Absolute Neutrophils -Man Diff 0.0 10^3/uL (1.4-6.5)
[2024-12-31] MEDS: VIDAZA 114.8 MG IV (13:21)
[2024-12-31 13:26] VITALS: BP 128/62
[2024-12-31 13:39] LABS: Hematocrit 22.6 % (39.0-52.0); Hemoglobin 7.7 g/dL (13.0-18.0); Mean Corp Hgb Conc. 34.1 g/dL (33.0-37.0); Mean Corpuscular Volume 100.0 fL (80.0-94.0); Platelet Count 10 10^3/uL (130-400); Red Cell Dist. Width 19.8 % (11.5-14.5)
[2024-12-31 14:22] VITALS: BP 128/62
[2024-12-31 14:39] VITALS: BP 112/51
[2024-12-31 15:19] VITALS: BP 100/46
[2024-12-31 16:09] LABS: Absolute Neutrophils -Man Diff 0.1 10^3/uL (1.4-6.5); Normal RBC Morphology Yes; Platelets Checked Yes; Total Cells Counted 100
[2025-01-01 08:26] VITALS: BP 126/47
[2025-01-01] MEDS: VIDAZA 114.8 MG IV (08:32)
[2025-01-01 09:50] VITALS: BP 115/46
[2025-01-01 10:05] VITALS: BP 109/39
[2025-01-01 12:00] VITALS: BP 114/40
[2025-01-02 08:04] VITALS: BP 151/81
[2025-01-02 08:22] VITALS: BP 138/67
[2025-01-02 08:51] VITALS: BP 135/98
[2025-01-02 13:30] VITALS: BP 138/59
[2025-01-02 14:20] VITALS: BP 129/56
[2025-01-02] MEDS: ALOXI 5 MG IV (14:50)
[2025-01-02] MEDS: VIDAZA 114.8 MG IV (14:54)
[2025-01-03 08:30] VITALS: BP 122/68
[2025-01-03] MEDS: VIDAZA 114.8 MG IV (09:25)
[2025-01-03 09:28] LABS: Hematocrit 24.9 % (39.0-52.0); Hemoglobin 8.4 g/dL (13.0-18.0); Mean Corp Hgb Conc. 33.7 g/dL (33.0-37.0); Mean Corpuscular Volume 98.4 fL (80.0-94.0); Platelet Count 22 10^3/uL (130-400); Red Cell Dist. Width 18.7 % (11.5-14.5)
--- NOTE | 2025-01-03 09:50 | PTCARENOTE ---
Lab results reported to Dr. Smallwood. WBC 0.6, Hgb 8.4 HCT 24.9, Platelet count 22,000. Pt is afebrile. No signs of bleeding. Dr. Smallwood ordered platelets to be transfused today despite above set parameter, verbal order obtained. Pt to return on
Monday01/07/25 for additional lab work and day 6 of Vidaza.
[2025-01-03 10:11] LABS: Nucleated Red Blood Cells % 0 % (-)
[2025-01-03 10:45] VITALS: BP 122/58
[2025-01-03 11:03] VITALS: BP 117/49
[2025-01-03 11:38] VITALS: BP 128/53
== END 2025-01-03 13:12 | disposition home or self-care (01) ==
LOC: OID 08:20
PROVIDERS: ATTENDING PHYSICIAN Internal Medicine Hematology & Oncology; FAMILY PHYSICIAN Family Medicine
DX: D69.6 Thrombocytopenia, unspecified (principal); D72.819 Decreased white blood cell count, unspecified; D64.9 Anemia, unspecified; Z51.11 Encounter for antineoplastic chemotherapy; D46.1 Refractory anemia with ring sideroblasts; M35.3 Polymyalgia rheumatica; Z87.891 Personal history of nicotine dependence
CPT/HCPCS: 36415; 36430; 36591; 80053; 83735; 85025; 85049; 86850; 86900; 86901; 86920; 96367; 96375; 96413; 96523; J2469; J9025; P9058; P9073

== ENCOUNTER 2025-01-22 09:53 | Outpatient (RCR) | payer OTHER, SELFPAY ==
[2025-01-07] VITALS (9 sets, daily range): BP systolic 90–129; BP diastolic 48–83
[2025-01-07] MEDS: ALOXI 5 MG IV (08:36)
[2025-01-07 09:09] LABS: Hematocrit 22.6 % (39.0-52.0); Hemoglobin 7.7 g/dL (13.0-18.0); Mean Corp Hgb Conc. 34.1 g/dL (33.0-37.0); Mean Corpuscular Volume 97.4 fL (80.0-94.0); Nucleated Red Blood Cells % 0 % (-); Platelet Count 5 10^3/uL (130-400); Red Cell Dist. Width 17.7 % (11.5-14.5)
[2025-01-07] MEDS: VIDAZA 114.8 MG IV (09:10)
[2025-01-08 13:00] VITALS: BP 114/61
[2025-01-08] MEDS: VIDAZA 114.8 MG IV (13:19)
[2025-01-10 09:01] VITALS: BP 124/63
[2025-01-10 09:58] LABS: Hematocrit 24.0 % (39.0-52.0); Hemoglobin 8.3 g/dL (13.0-18.0); Mean Corp Hgb Conc. 34.6 g/dL (33.0-37.0); Mean Corpuscular Volume 96.0 fL (80.0-94.0); Platelet Count 2 10^3/uL (130-400); Red Cell Dist. Width 17.1 % (11.5-14.5)
[2025-01-10 10:39] VITALS: BP 106/63
[2025-01-10 10:57] VITALS: BP 120/57
[2025-01-10 11:17] LABS: Nucleated Red Blood Cells % 0 % (-)
[2025-01-10 12:07] VITALS: BP 104/53
[2025-01-13] VITALS (7 sets, daily range): BP systolic 99–112; BP diastolic 39–51
[2025-01-13 10:50] LABS: Mean Corp Hgb Conc. 34.8 g/dL (33.0-37.0); Mean Corpuscular Volume 96.3 fL (80.0-94.0); Red Cell Dist. Width 16.1 % (11.5-14.5)
[2025-01-13 10:52] LABS: Hematocrit 20.7 % (39.0-52.0); Hemoglobin 7.2 g/dL (13.0-18.0); Platelet Count 5 10^3/uL (130-400)
[2025-01-13 11:17] LABS: ALT (SGPT) 19 U/L (0-50); AST (SGOT) 15 U/L (17-59); Albumin 4.2 g/dl (3.5-5.0); Alkaline Phosphatase 50 U/L (38-126); Blood Urea Nitrogen 16 mg/dl (9-20); Calcium 8.7 mg/dl (8.4-10.2); Carbon Dioxide 26 mmol/L (22-30); Chloride 107 mmol/L (98-107); Glucose 126 mg/dl (70-99); Magnesium 1.9 mg/dl (1.6-2.3); Potassium 4.0 mmol/L (3.5-5.1); Sodium 137 mmol/L (135-145); Total Protein 6.0 g/dl (6.3-8.2); eGFR > 60.00
[2025-01-15 10:04] LABS: Hematocrit 21.3 % (39.0-52.0); Mean Corp Hgb Conc. 34.7 g/dL (33.0-37.0); Mean Corpuscular Volume 94.7 fL (80.0-94.0); Red Cell Dist. Width 15.9 % (11.5-14.5)
[2025-01-15 10:08] LABS: Hemoglobin 7.4 g/dL (13.0-18.0)
[2025-01-15 10:11] LABS: Platelet Count 5 10^3/uL (130-400)
[2025-01-15 10:37] VITALS: BP 134/55
[2025-01-15 10:53] VITALS: BP 119/40
[2025-01-15 11:22] VITALS: BP 109/55
[2025-01-15 12:00] VITALS: BP 109/55
[2025-01-15 12:15] VITALS: BP 102/45
[2025-01-15 13:46] VITALS: BP 101/50
[2025-01-17 07:45] VITALS: BP 110/55
[2025-01-17 08:34] LABS: Hematocrit 22.6 % (39.0-52.0); Hemoglobin 8.1 g/dL (13.0-18.0); Mean Corp Hgb Conc. 35.8 g/dL (33.0-37.0); Mean Corpuscular Volume 91.5 fL (80.0-94.0); Nucleated Red Blood Cells % 3.7 % (-); Platelet Count 5 10^3/uL (130-400); Red Cell Dist. Width 15.4 % (11.5-14.5)
[2025-01-17 09:04] VITALS: BP 110/55
[2025-01-17 09:21] VITALS: BP 95/41
[2025-01-17 09:56] VITALS: BP 93/42
[2025-01-22 10:15] VITALS: BP 111/54
[2025-01-22 10:38] LABS: Mean Corp Hgb Conc. 34.1 g/dL (33.0-37.0); Mean Corpuscular Volume 92.4 fL (80.0-94.0); Red Cell Dist. Width 14.3 % (11.5-14.5)
[2025-01-22 10:41] LABS: Hematocrit 20.8 % (39.0-52.0); Hemoglobin 7.1 g/dL (13.0-18.0); Platelet Count 18 10^3/uL (130-400)
[2025-01-22 11:41] VITALS: BP 104/42
[2025-01-22 11:50] VITALS: BP 104/42
[2025-01-22 12:05] VITALS: BP 117/73
[2025-01-22 13:45] VITALS: BP 137/53
== END 2025-02-04 23:59 | disposition home or self-care (01) ==
LOC: OID 09:53
PROVIDERS: ATTENDING PHYSICIAN Internal Medicine Hematology & Oncology; FAMILY PHYSICIAN Family Medicine
DX: D69.6 Thrombocytopenia, unspecified (principal); D72.819 Decreased white blood cell count, unspecified; D64.9 Anemia, unspecified; Z51.11 Encounter for antineoplastic chemotherapy; D46.1 Refractory anemia with ring sideroblasts; M35.3 Polymyalgia rheumatica; Z87.891 Personal history of nicotine dependence
CPT/HCPCS: 36430; 36591; 80053; 83735; 85025; 86850; 86900; 86901; 86920; 96374; 96413; J2469; J9025; P9058; P9073

== ENCOUNTER 2025-01-22 19:47 | Inpatient (IN) | payer OTHER, SELFPAY ==
[2025-01-22 17:17] VITALS: BP 138/54
[2025-01-22 17:50] LABS: Hematocrit 22.2 % (39.0-52.0); Hemoglobin 7.7 g/dL (13.0-18.0); Mean Corp Hgb Conc. 34.7 g/dL (33.0-37.0); Mean Corpuscular Volume 88.8 fL (80.0-94.0); Nucleated Red Blood Cells % 0 % (-); Platelet Count 14 10^3/uL (130-400); Red Cell Dist. Width 14.6 % (11.5-14.5)
[2025-01-22 18:12] VITALS: BMI 21.3
[2025-01-22 18:15] LABS: ALT (SGPT) 13 U/L (0-50); AST (SGOT) 14 U/L (17-59); Albumin 4.0 g/dl (3.5-5.0); Alkaline Phosphatase 59 U/L (38-126); Blood Urea Nitrogen 11 mg/dl (9-20); Calcium 8.5 mg/dl (8.4-10.2); Carbon Dioxide 24 mmol/L (22-30); Chloride 101 mmol/L (98-107); Glucose 141 mg/dl (70-99); Potassium 4.0 mmol/L (3.5-5.1); Sodium 131 mmol/L (135-145); Total Protein 6.3 g/dl (6.3-8.2); eGFR > 60.00
[2025-01-22 18:55] LABS: Urine Character Clear (Clear)
--- NOTE | 2025-01-22 18:56 | ED.GENMED ---
History of Present Illness
General
Chief Complaint: Fever
Source: patient
Exam Limitations: none
Time Seen by Provider: 01/22/25 18:07
Nursing documentation reviewed up to this point in time: agreed with
History of Present Illness
History of Present Illness:
69-year-old male with history as noted significant for AML who presents to the emergency department for evaluation after fever. Patient is receiving treatment for AML through [facility] and [facility]; plan is to ultimately
pursue bone marrow transplant. He has been dealing with anemia and thrombocytopenia, today had scheduled transfusion of PRBCs x 1 unit. He says that about 90 minutes after the transfusion he was noted to be febrile. He says he was not symptomatic
did not have chills or rigors but was referred to the ER for assessment. He denies any acute complaints today�he says he has been dealing with some musculoskeletal chest pain on the right side for quite some time but otherwise physically feels
generally well. Denies any recent coughing, shortness of breath, urinary symptoms, abdominal or flank pain, diarrhea, constipation, vomiting. He does have a PICC line in his left upper extremity�notably had infection in his PICC line a few months
ago on the right side requiring removal and replacement.
Past History
Past History
ED Past Medical History: Other (MDS)
Review of Systems
Review of Systems
All Other Systems: ROS reviewed and negative except as documented in HPI and ROS
Constitutional: Reports fever; Denies chills
Respiratory: Denies trouble breathing
Cardiac: Reports chest pain
ABD/GI: Denies abdominal pain, nausea, vomiting, diarrhea or constipated
: Denies dysuria, frequency, flank pain or bleeding
Musculoskeletal: Denies neck pain or back pain
Neurological: Denies dizzy or headache
Phy Exam
Physical Exam
Physical Exam:
General: Awake, alert, oriented x3; no acute distress
Head: Normocephalic, atraumatic
Eyes: Conjunctiva normal
Throat: Airway intact, handling secretions
Neck: Trachea midline, supple without meningismus
Lungs: Clear to auscultation bilaterally, no wheezing, rales, rhonchi
Heart: Regular rate and rhythm, no murmurs, gallops, or rubs appreciated
Abd: Soft, non distended, nontender
Neuro: Grossly intact
Extremities: No edema in extremities, equal pulses in all extremities, left upper extremity PICC line in place no signs of acute infection
Scores
Heart Failure Risk
Heart Failure Risk Score: Not Applicable
Heart Score for Chest Pain Patients
STEMI patient?: Not applicable
Withdrawal Assessment of Alcohol
Withdrawal Assessment Completed?: Not applicable
Course
Orders/Labs/Results
Orders:
Orders
01/22/25 17:28
Complete Blood Count/With Diff Urgent
Comprehensive Metabolic Panel Urgent
Lactic Acid Urgent
Blood Culture Urgent
ADNRES Source: Blood/Venous
Specimen Description:
01/22/25 18:09
CR Chest - 2 Views Urgent
Comment:
Reason For Exam: fever, neutropenia
01/22/25 18:27
Urinalysis Reflex To Culture Urgent
Date Specimen was Collected: 01/22/25
Time Specimen was Collected: 18:15
Urine Microscopic Reflex Cult Urgent
Blood Culture Q30M
ANDRES Source: Blood/Venous
Specimen Description:
Blood Culture Q30M
ANDRES Source: Blood/Venous
Specimen Description:
Urine Culture Urgent
ANDRES Source: U
Specimen Description:
Date Specimen was Collected: 01/22/25
Time Specimen was Collected: 18:15
01/22/25 18:33
COVID-19 Antigen Urgent
Source: Nasal Swab
Influenza A+B Rapid Molecular Urgent
ANDRES Source: Nasal Swab
Specimen Description:
01/22/25 18:59
Electrocardiogram (*1) Urgent
Reason for Study: Chest Pain
ONCOLOGY CONSULT Urgent
Consulting Provider: Ayanna Carreno
Was physician already notified: Yes
EKG- Treatment ONCE
01/22/25 19:00
0.9% Sodium Chloride 1000 ml [Nss] 1,000 ml IV BOLUS
Piperacillin/Tazo 4.5 Gram [Zosyn] 4.5 gram in 100 ml IV NOW
01/22/25 19:29
Vancomycin [Vancocin] 2,000 mg 0.9% Sodium Chloride 500 ml [Nss] 500 ml IV NOW
01/22/25 19:32
Admit/Transfer Patient As Directed
Co-Sign Provider:
Level of Care: Inpatient admission
Assign to:: Medical/Surgical
Physician / Group: Naima
Diagnosis: Fever
Reason for Hospitalization: IV abx
Expected length of stay greater than two midnights?: Yes
ELOS- Estimated Length of Stay in days: 3
I certify the patient meets the requirements for IP care: Yes
01/22/25 19:34
PRN Pain Medication Management As Directed
May give lesser potent ordered pain med per pt: Yes
preference::
Protocol:: Medication orders for pain may be administered in a
manner that supports deferring to patient preference
when the pt is:
- Requesting an ordered lesser potent pain medication.
Least to most potent pain medications are defined
as: acetaminophen < NSAID < tramadol < opioids
(morphine, oxycodone, hydromorphone).
- Requesting a lesser dose of the same medication IF
ORDERED.
- Requesting a less intrusive route of administration
if both routes are prescribed by the provider (PO <
IV).
01/22/25 19:35
Code Status As Directed
Resuscitation Status: Full Code
Abnormal Lab Results
01/22/25 01/22/25
17:28 18:27
WBC 0.5 L* 10^3/uL
(4.8-10.8)
RBC 2.50 L 10^6/uL
(4.70-6.10)
Hgb 7.7 L g/dL
(13.0-18.0)
Hct 22.2 L %
(39.0-52.0)
RDW 14.6 H %
(11.5-14.5)
Plt Count 14 L* D 10^3/uL
(130-400)
MPV 11.2 H fL
(7.4-10.4)
Absolute Neuts (auto) 0.0 L* 10^3/uL
(1.4-6.5)
Absolute Lymphs (auto) 0.5 L 10^3/uL
(1.2-3.4)
Absolute Monos (auto) 0.0 L 10^3/uL
(0.1-0.6)
Neutrophils % 0.0 L %
(42.2-75.2)
Lymphocytes % 95.8 H %
(20.5-51.1)
Sodium 131 L mmol/L
(135-145)
Creatinine 0.6 L mg/dL
(0.7-1.3)
Glucose 141 H mg/dl
(70-99)
Total Bilirubin 3.8 H mg/dl
(0.2-1.3)
AST 14 L U/L
(17-59)
Urine Ketones 1+ A
(Negative)
Ur Occult Blood Reflex 2+ A
(Negative)
Urine Urobilinogen 2+ A
(Neg - 1+)
Leukocyte Esterase Rfl 1+ A
(Negative)
Urine RBC 3-6 A /HPF
(0-2)
Urine Bacteria (Reflex) Few A
(Negative)
Urine Albumin (Reflex) 2+ A
(Neg - Trace)
01/22/25 17:28
01/22/25 17:28
Vital Signs
Initial and Last Documented VS:
Initial Vital Signs
Pulse Resp BP Pulse Ox
95 20 138/54 99
01/22/25 17:17 01/22/25 17:17 01/22/25 17:17 01/22/25 17:17
Last Documented Vital Signs
Temp Pulse Resp BP Pulse Ox
36.9 C 76 16 138/54 98
01/22/25 18:30 01/22/25 20:00 01/22/25 20:00 01/22/25 17:17 01/22/25 20:00
MDM/Problems Addressed
Differential Diagnosis Includes:
Transfusion related fever versus neutropenic fever: bacteremia, pneumonia, UTI, viral syndrome
MDM/Problems Addressed:
69-year-old male presents for evaluation after one-time fever occurring a little over an hour after receiving routine transfusion of PRBCs in the setting of AML and chronic anemia. He is feeling well here denies having any acute symptoms.
Afebrile. Exam as above. Labs sent in triage including a CBC which shows profound neutropenia with WBC 0.5 with 0% neutrophils, ANC 0. Chemistry no clinically significant abnormalities. His urinalysis appears contaminated but no pyuria to
suggest infection. Will check chest x-ray and viral swabs as well. Blood culture sent off. Discussed with hematology�likely transfusion related fever but given profound neutropenia we will cover with broad-spectrum antibiotics and admit pending
culture results. Discussed case with hospitalist to facilitate admission.
X-ray concerning for pneumonia�already treated with antibiotics empirically. Urinalysis appears contaminated. COVID and flu swabs negative. Admitted to hospitalist service.
Chronic conditions affecting care:
AML
*Pulse Oximetry
SaO2: 99
Oxygen Mode of Delivery: Room air
Patient hypoxic: no (99%)
*Critical Care Note
Total Time (30-74mins, 75-104mins- exclusive of procedures): Not Applicable
Data Reviewed
Review of Other/Old Records Reveals: Labs and Records
Source: patient and records
Patient Management
Discussion with other providers: Hospitalist (Discussed with hospitalist) and Corner Cutter Machine Operator (Discussed with hematology/oncology)
Escalation/DeEscalation of care consider admission/obs:
Admission indicated
ED Attending Note
-
Portions of this chart may have been created with voice recognition software.� Occasional wrong word or��sound alike� substitutions may have occurred due to the inherent limitations of voice recognition software.
Discharge Plan
Departure
Patient Disposition: Admit
Date of Disposition: 01/22/25
Time of Disposition: 19:03
Admit to doctor: Naima
Presentation/result/management discussed w/ accepting MD/DO: Hospitalist
Discharge Problem:
Neutropenic fever, Pneumonia
Interventions
Interventions:
*Risk Screen - Suicide Last Done: 01/22/25 18:12
*General Assessment Last Done: 01/22/25 17:17
*Neglect/Abuse Screening Last Done: 01/22/25 18:12
*ED- Fall Risk Assessment Last Done: 01/22/25 18:12
*ED COVID-19 Vaccine History Last Done: 01/22/25 18:12
ED- Neurological Assessment Last Done: 01/22/25 18:12
ED-Skin Assessment Last Done: 01/22/25 18:12
--- NOTE | 2025-01-22 19:08 | HPS.HSE ---
Addendum entered and electronically signed by Cathie Murillo PA-C 01/22/25 20:41:
Official Report on Chest X-Ray with a Right Upper Lobe Pneumonia in similar location to patient's right sided chest pain.
Add Azithromycin and Vancomycin to Cefepime - Check MRSA screen
Original Note:
Family Physician
-
Family Physician: NOT KNOW UNKNOWN - PT DOES
Chief Complaint
-
Fever
History of Present Illness
Patient is a 69 y/o male past medical history of polymyalgia rheumatica, and acute myeloid leukemia who presents with fevers. Patient was at the infusion room earlier today and received 1 unit of PRBCs. Upon returning home he spiked a fever to
101F. He contacted his oncologist who recommended he go to the emergency department for evaluation. He has known pancytopenia and blood work today did reveal significant neutropenia. Patient's only complaint is some right sided musculoskeletal
chest pain which has been on going for the past month or so. He reports is worse with palpation and is one very specific spot on the right chest.
Medical History
Past Medical History
Past Medical History: Reports Other
Additional Past Medical History:
Acute Myeloid Leukemia
Polymyalgia Rheumatica
Past Surgical History: Reports Other
Additional Past Surgical History:
Tonsillectomy
Umbilical Hernia Repair
Knee Replacement
Social History
Tobacco: Former Smoker (Quit 40-50 years ago)
Family History
Family History: Not pertinent
Allergies / Home Medications
Allergies reflects when Allergies were last updated in [facility].
Home Medications with original date entered in [facility]
Allergy/Medication List:
Allergies
Allergy/AdvReac Type Severity Reaction Status Date / Time
levofloxacin (From Levaquin) Allergy Unknown Verified 01/22/25 17:17
Home Medications
acyclovir 800 mg tablet 800 mg PO BID 10/14/24
venetoclax 100 mg tablet 400 mg PO DAILY 10/14/24
cefpodoxime 200 mg tablet 200 mg PO BID 10/15/24
enasidenib 100 mg tablet 100 mg PO HS 12/04/24
azacitidine 100 mg solution for injection (Vidaza) 148 mg IV .7DAYS 12/23/24
Review of Systems
-
A 12 point ROS was completed and negative except as noted: Yes
Constitutional: Reports Fever; Denies Chills
Respiratory: Denies Cough or Trouble Breathing
Physical Exam
Vital Signs
Vital Signs
Temp Pulse Resp BP Pulse Ox
98.4 F 81 17 138/54 99
01/22/25 18:30 01/22/25 18:30 01/22/25 18:30 01/22/25 17:17 01/22/25 18:59
Physical Exam
General: Comfortable and Conversant
HEENT: Anicteric and Moist mucous membranes
Respiratory: Clear and Non Labored Respirations
Cardiac: S1/S2 and Regular Rhythm
GI: Soft and Non Tender
Rectal: Deferred by Provider
Genito-urinary: Clear Urine
Musculoskeletal: No Clubbing, No Cyanosis and Other (Right chest wall pain is reproducible on exam with palpatin of the right mid chest )
Skin: Warm and Dry
Neuro: Awake, Alert, Oriented and Nonfocal/grossly intact
Psych: Calm
Laboratory Results
-
01/22/25 17:28
01/22/25 17:28
Laboratory Results
Lactic Acid 0.8 mmol/L (0.7-2.0) 01/22/25 17:28
Total Bilirubin 3.8 mg/dl (0.2-1.3) H 01/22/25 17:28
AST 14 U/L (17-59) L 01/22/25 17:28
ALT 13 U/L (0-50) 01/22/25 17:
Alkaline Phosphatase 59 U/L (38-126) 01/22/25 17:28
Data Reviewed
-
Lab Data: Labs Reviewed by me
Impression/Plan
-
Fever, possibly transfusion reaction vs neutropenic fever
-Continue cefepime
-Await urine and blood cultures
-Await chest x-ray
-COVID and Influenza swab are negative
Pancytopenia
-Monitor counts closely
-Blood consent obtained and scanned into chart
AML
-Hold Enasidenib and Venteoclex
-Hold cefpodoxime prophylaxis while on cefepime
-Continue acyclovir prophylaxis
DVT proph: SCDs
Code Status: Full Code
--- NOTE | 2025-01-22 19:11 | W.PN.UPDATE ---
Update Note
Progress Note Update
Patient seen in conjunction with THREAD MACHINE OPERATOR. I agree with the findings and physical. I concur with assessment and plan unless stated otherwise.
Briefly, this is a 69-year-old male with past medical history significant for AML who is currently on chemotherapy [Aza/Russell] with chronic pancytopenia and transfusion dependence who received transfusion of 2 units of packed red blood cells today and
developed one-time fever and chills about 90 minutes after his transfusion . He had no fevers prior to the transfusion. He had no other symptoms including cough, shortness of breath, urinary discomfort frequency urgency abdominal pain nausea
vomiting or diarrhea. He had no rash. His treatment has been complicated by a prior history of PICC line infection several months ago which required replacement. He is on ppx cefpodoxime/acyclovir.
On arrival in the emergency department he was afebrile, he had received no Tylenol, blood pressure was 140/55 with a pulse of 87 and was satting 99% on room air. UA seems slightly positive but there is only 1+ leukocyte esterase and no nitrites
with few bacteria. CBC notable for WBC 0.5 with ANC of 0, hemoglobin of 7.7 and a platelet count of 14. He is electrolytes notable for a serum of 131 but otherwise unremarkable with normal BUN/creatinine.
Assessment and plan
Patient with AML, pancytopenia with severe neutropenia who developed a fever after blood transfusion, currently afebrile. He has had persistent neutropenia and there is concern for neutropenic fever although at this time patient is afebrile
hemodynamically stable without a focal source of infection on history or physical exam.
- admit to [facility] observation for evaluation for fever
- X-ray, viral testing, blood culture, urine culture
- Will give stat empiric cefepime for neutropenic fever at this time until afebrile x 48 h
- MRSA swab
- Monitor until afebrile x 48 hours
- Type and screen, transfusion goals are hemoglobin less than 7, beta count less than 10 or mucosal bleeding
- Oncology consultation
DVT prophylaxis SCDs
CODE STATUS full code
Addendum:
Xray with Right upper lobe PNA. Patient later endorsed some tenderness over the right upper chest.
- Given chronic cefpodoxime will adjust abx to include Vancomycin for possible MRSA and add azithromycin to include atypicals.
- check pneumonia ags
[2025-01-22 19:24] LABS: COVID-19 Antigen Negative (Negative)
[2025-01-22] MEDS: NSS 1000 IV (19:38)
[2025-01-22] MEDS: ZOSYN 100 IV (19:39)
[2025-01-22 20:45] VITALS: BP 121/99; BMI 20.5
--- NOTE | 2025-01-22 21:13 | PHA.VAN.IN ---
Assessment
- Assessment
Renal Function: Appears similar to baseline
Concomitant Antimicrobials: Azithromycin & Cefepime
AUC Dosing Plan
- Dosing Variables
Dosing Weight (kg): 70.6
Dosing CrCl (ml/min): 114
Vd coefficient (L/kg): 0.7
- Empiric Dosing
Initial / Loading Dose: 1500 MG ~ 2200
Maintenance Regimen: 1250 MG IV Q12H
Estimated AUC (mcg*h/mL): 549
Estimated Peak (mcg*h/mL): 36.4
Estimated Trough (mcg/ml): 12.9
Estimated Half Life (H): 7
- Monitoring
No levels ordered at this time: Consider levels in next few days
Pharmacokinetics Vancomycin I
- -
Patient Age: 69
Patient Sex: Male
Vancomycin Day #: 1
Indication: Pulmonary/Respiratory
Requesting Provider: Chidi Cherry
Pertinent Antimicrobial Allergies:
Levofloxacin w. unknown reaction.
Height / Weight:
Height 6 ft 1 in
Actual Weight 70.579 kg
Pertinent Past Medical History: History of polymyalgia rheumatica, and acute myeloid leukemia
- Vital Signs / Lab Results
Temp Pulse Resp BP Pulse Ox
99.2 F 76 18 121/99 97
01/22/25 20:45 01/22/25 20:45 01/22/25 20:45 01/22/25 20:45 01/22/25 20:45
Lab Results - Hematology
01/22/25
17:28
WBC 0.5 L*
Lab Results - Chemistry
01/22/25
17:28
BUN 11
Creatinine 0.6 L
Albumin 4.0
01/22/25
17:28
Lactic Acid 0.8
Lab Results - Urine
01/22/25
18:27
Urine Nitrite (Reflex) Negative
Leukocyte Esterase Rfl 1+ A
Urine WBC (Reflex) 3-5
Ur Squamous Epith Cells 11-15
Urine Bacteria (Reflex) Few A
Microbiology Results
01/22/25 18:33 Influenza Types A & B (RADHA) - Final
Nasal Swab Negative for Influenza A & B, NAAT
Negative results must be combined with clinical observations
and patient history.
Nucleic Acid Amplification test (NAAT)performed on the
[employer] platform.
--- NOTE | 2025-01-22 21:25 | VATNOTE ---
PT ADMITTED FROM HOME WITH 4FR DL L PICC. SITE APPEARS WNL. CXR DONE WITH TIP IN CAJ. DRSG CDI WITH BIOPATACH DONE TODAY BY [facility]. EXTENSIONS REMOVED AND NEW CLAVES APPLIED. BOTH LUMENS FLUSH WELL AND HAVE A GOOD BR. VAT TO FOLLOW.PT
WITH RECENT HX OF PICC LINE INFECTION IN RUE.
[2025-01-22] MEDS: ZOVIRAX 800 MG PO (21:32)
[2025-01-22] MEDS: ZITHROMAX 500 MG PO (21:33)
[2025-01-22] MEDS: VANCOCIN 530 MG IV (22:36)
--- NOTE | 2025-01-22 23:38 | PTCARENOTE ---
Pt arrived to unit via stretcher. Pt walked from stretcher to bed. Pt oriented to room. Pt AAOx3, VSS. Call thompson within reach, plan of care ongoing.
[2025-01-22 23:48] VITALS: BP 114/83
[2025-01-23] MEDS: MAXIPIME 2000 MG IV ×3 (00:12→16:02)
[2025-01-23] MEDS: STERILE WATER FOR INJECTION 10 ML IV ×3 (00:13→16:02)
[2025-01-23 05:08] LABS: Hematocrit 18.6 % (39.0-52.0); Hemoglobin 6.5 g/dL (13.0-18.0); Mean Corp Hgb Conc. 34.9 g/dL (33.0-37.0); Mean Corpuscular Volume 89.0 fL (80.0-94.0); Platelet Count 9 10^3/uL (130-400); Red Cell Dist. Width 14.6 % (11.5-14.5)
[2025-01-23 05:21] LABS: ALT (SGPT) 10 U/L (0-50); AST (SGOT) 12 U/L (17-59); Albumin 3.4 g/dl (3.5-5.0); Alkaline Phosphatase 55 U/L (38-126); Blood Urea Nitrogen 10 mg/dl (9-20); Calcium 8.1 mg/dl (8.4-10.2); Carbon Dioxide 24 mmol/L (22-30); Chloride 105 mmol/L (98-107); Estimated Creatinine Clearance 114 ml/min; Glucose 122 mg/dl (70-99); Potassium 3.8 mmol/L (3.5-5.1); Sodium 134 mmol/L (135-145); Total Protein 5.6 g/dl (6.3-8.2); eGFR > 60.00
--- NOTE | 2025-01-23 05:23 | W.PN.UPDATE ---
Update Note
Progress Note Update
Morning labs:
HH 6.5 (was7.7)
platelet 9 (was 14)
Last PRBC yesterday in infusion center. Usually receivesCMV neg irrad blood.
Consent already obtained . One unit platelets and one unit prbc ordered (CMV neg irrad)
[2025-01-23] MEDS: VANCOCIN 275 MG IV ×2 (06:00→17:01)
[2025-01-23 07:37] VITALS: BP 123/69
[2025-01-23] MEDS: ZOVIRAX 800 MG PO ×2 (08:01→20:02)
[2025-01-23] MEDS: LIDOCAINE 4% PATCH 1 PATCH TOPICAL (08:01)
[2025-01-23 08:52] VITALS: BP 123/69
--- NOTE | 2025-01-23 08:57 | CON.ONC ---
Consultation
-
Date Consultation Requested: 01/23/25
Date Consultation Performed: 01/23/25
Requesting Provider: Dr. Gilmar Mars
Performing Provider: Dr. Alli Rose
Reason for Consultation: AML
Impression
Impression
AML
pancytopenia
neutropenic fever
elevated Tbili
hyponatremia
Plan
Plan
follow up BMBx results from 01/20
due for cycle 5 azacitidine on 01/27
neutropenic precautions
continue Venclexta 100mg (dose reduced d/t interaction with voriconazole) and continue enasidenib 100mg daily -will need to confirm 21 vs [address] Reyez
transfuse Hgb <7 or as needed for sxs anemia
transfuse platelets <20 with NF <50 prn bleeding
avoid NSAIDs, antiplatelet, and anticoagulation with platelet count <50,000
Transplant evaluation underway at [facility]
CMV negative, irradiated blood products
continue acyclovir, voriconazole ppx
f/u ID consult, follow cultures
Patient History
History of Present Illness
69yo M with AML admitted with neutropenic fever. He received transfusion yesterday in the [facility] and upon return home developed a fever to 101F. He was recommended to proceed to the ER by Dr. Smallwood for further evaluation and treatment of neutropenic
fever. He also noted some right sided chest discomfort that has been ongoing for the past month which is reproducible. Intial evaluation with CXR was notable for RUL pneumonia. He has been admitted and started on IV antibiotics.
In brief, Gilmar is known to Dr. Smallwood and Emre for management of AML. He was initially diagnosed with MDS with ring sideroblasts and normal karyotype in Jun 2024. He was closely observed without indication for treatment until September 2024. He
developed pancytopenia in September 2024 with circulating blasts. He underwent BMBx at [facility] which was diagnostic for AML. He was initiated on azacitidine and venetoclax September. Follow up BMbx November 20, 2024 showed persistent AML with 18% blasts so
enasidenib was added to azacitidine and venetoclax in cycle 3 and started his most recent cycle 4 on December 30, 2024. He underwent a restaging BMBx at [facility] Jan 20, 2025, results are pending. He remains transfusion dependent and chronically
neutropenic.
Afebrile, no hypoxia or hypotension
Past-Medical/Surgical History
PMH Basal�cell�carcinoma Polymyalgia�rheumatica, Achilles tendonitis from levaquin October 2024, LLE DVT October 2024
Surgical�History Knee�replacement�2013 Hernia�repair�2000
Social�History Former�Smoker.�Year�Quit�1983. Denies�any�prior�alcohol�use. Denies�any�illicit�drug�use. Occupational�Status:�Former���retired. Patient�has�not�had�any�occupational�exposure. Marital�Status:�Patient�is�
Family: CVA
Patient Medication
�Medication �Instructions �Recorded �Confirmed �Last Taken �Type
acyclovir 800 mg tablet 800 mg PO BID Infection 10/14/24 01/22/25 01/22/25 History
venetoclax 100 mg tablet 400 mg PO DAILY Cancer 10/14/24 01/22/25 01/19/25 History
cefpodoxime 200 mg tablet 200 mg PO BID Infection 10/15/24 01/22/25 01/22/25 History
enasidenib 100 mg tablet 100 mg PO HS Autoimmune Disorder 12/04/24 01/22/25 01/21/25 History
azacitidine 100 mg solution for 148 mg IV .7DAYS Cancer 12/23/24 01/22/25 01/08/25 History
injection (Vidaza)
Active Medications
Generic Name Dose Route Start Last Admin
Trade Name Freq PRN Reason Stop Dose Admin
Acetaminophen 650 mg 01/22/25 20:34
Acetaminophen 325 Mg Tablet PO 02/19/25 20:33
Q4HPRN PRN
mild pain/ fever>100.5F
Acyclovir Sodium 800 mg 01/22/25 20:34 01/23/25 08:01
Acyclovir Sodium 800 Mg Tablet PO 02/01/25 20:33 800 mg
BID IRENE Administration
Azithromycin 500 mg 01/23/25 18:00
Azithromycin 250 Mg Tablet PO
QPM IRENE
Cefepime HCl 2,000 mg 01/23/25 00:00 01/23/25 08:01
Cefepime Hcl 2,000 Mg/12.5 Ml Vial IV 2,000 mg
Q8H IRENE Administration
Vancomycin HCl 1,250 mg/ 275 mls @ 183.33 mls/hr 01/23/25 06:00 01/23/25 06:00
Sodium Chloride IV 275 mls
Q12H IRENE Administration
Protocol
Lidocaine 1 patch 01/23/25 08:00 01/23/25 08:01
Lidocaine 4% Topical Patch TOPICAL 02/20/25 07:59 1 patch
DAILY IRENE Administration
Protocol
Patch Removal 0 patch 01/23/25 20:00
Remove Lidocaine Patch REMOVE 02/20/25 19:59
DAILY@2000 IRENE
Sodium Chloride 0 flush 01/22/25 21:00
Sodium Chloride 0.9% (Flush) Syringe IV 02/19/25 20:59
PER PROTOCOL IRENE
Sterile Water 10 ml 01/23/25 00:00 01/23/25 08:01
Sterile Water For Injection 10 Ml Vial IV 02/20/25 00:00 10 ml
Q8H IRENE Administration
Review of Systems
-
ROS is notable for HPI, otherwise negative
Physical Exam
-
General: No Apparent Distress
HEENT: Moist Mucous Membranes; Negative Jaundice
Pulmonary: Other (unlabored)
GI: Soft
Extremities: Pulses Present
Neurology: Non Focal
Psych: Calm
Labs
Lab Results
WBC 0.4 10^3/uL (4.8-10.8) L* 01/23/25 04:34
RBC 2.09 10^6/uL (4.70-6.10) L 01/23/25 04:34
Hgb 6.5 g/dL (13.0-18.0) L* 01/23/25 04:34
Hct 18.6 % (39.0-52.0) L* 01/23/25 04:34
MCV 89.0 fL (80.0-94.0) 01/23/25 04:34
MCH 31.1 pg (27.0-31.0) H 01/23/25 04:34
MCHC 34.9 g/dL (33.0-37.0) 01/23/25 04:34
RDW 14.6 % (11.5-14.5) H 01/23/25 04:34
Plt Count 9 10^3/uL (130-400) L* D 01/23/25 04:34
MPV 11.8 fL (7.4-10.4) H 01/23/25 04:34
Abs Immat Gran (auto) 0.0 10^3/uL (0-0.05) 01/22/25 17:28
Absolute Neuts (auto) 0.0 10^3/uL (1.4-6.5) L* 01/22/25 17:28
Absolute Lymphs (auto) 0.5 10^3/uL (1.2-3.4) L 01/22/25 17:28
Absolute Monos (auto) 0.0 10^3/uL (0.1-0.6) L 01/22/25 17:28
Absolute Eos (auto) 0.0 10^3/uL (0-0.7) 01/22/25 17:28
Absolute Basos (auto) 0.0 10^3/uL (0-0.2) 01/22/25 17:28
Immature Gran % 0.0 % (0-0.5) 01/22/25 17:28
Neutrophils % 0.0 % (42.2-75.2) L 01/22/25 17:
Lymphocytes % 95.8 % (20.5-51.1) H 01/22/25 17:
Monocytes % 4.2 % (1.7-9.3) 01/22/25 17:
Eosinophils % 0.0 % (0-6) 01/22/25:
Basophils % 0.0 % (0-2) 01/22/25 17:
Creatinine 0.6 mg/dL (0.7-1.3) L 01/23/25 04:34
Vital Signs
Vital Signs
Temp Pulse Resp BP Pulse Ox
97.9 F 78 18 123/69 97
01/23/25 08:52 01/23/25 08:52 01/23/25 08:52 01/23/25 08:52 01/23/25 07:37
--- NOTE | 2025-01-23 09:01 | CON.ID ---
Addendum entered and electronically signed by Tamiko Rodrigez MD 01/23/25 15:58:
I personally performed a history and physical exam of the patient and discussed management with the resident. I reviewed the resident's note and agree with most of the documented findings and plan of care HPI/CC.
# RUL CAp
# Fever - resolving
# Prolonged neutropenia due to AML
# MDS conversion to AML (09/2024) on azacitidine, venetoclax, enasidunab, prophylactic acyclovir, cefpodoxime
-Ucx neg
- Urine legionella Ag and strep pneumo ag neg (low sensitivity tests)
- Follow blood cx's
- Agree with cefepime 2g IV q8h and azithromycin po.
- DC IV Vancomycin
- Continue Acyclovir ppx. Voriconazole ppx added today.
- Follow temps.
Original Note:
Consultation
-
Date/Time Consultation Requested: 01/23/2025 07:38
Date/Time Consultation Performed: 01/23/2025 09:30
Requesting Provider: Dr. Ruffin
Performing Provider: Dr. Luna ; Dr. Rodrigez
Reason for Consultation: Neutropenic fevers
Chief Complaint / Past History
Chief Complaint
FEVER
History of Present Illness
This is a 69-year-old male with past medical history of AML, polymyalgia rheumatica presented in the emergency department on 01/22/2025 with complaints of fever.
Patient informed me that he was at the infusion center yesterday and he received 1 unit of blood. When he reached home a checked his temperature and it was 101F. He contacted his oncologist who recommended to go to the ER.
Other than the fever patient complains of right sided anterior chest pain which has been going on for many weeks now. Reports that pain gets worse with palpation. Denies any other symptoms including diarrhea, nausea, vomiting, trouble breathing,
cough, headache or any urinary symptoms.
Past History
Past Medical History: Other (AML, Polymyalgia rheumatica)
Past Surgical History: Tonsilectomy and Other (Umbilical hernia repair, Knee replacement)
Allergy History:
levofloxacin (From Levaquin) Allergy (Verified 01/22/25 17:17)
Unknown
Medications Reviewed: Yes
Current Antibiotics:
Vancomycin, azithromycin, cefepime
Social History
Tobacco: Former Smoker
Living: With Family
Family History
Family History: Not Pertinent
Review of Systems
Review of Systems
General: Fever
Cardiovascular: Chest Pain (Right sided)
Respiratory: Negative Dyspnea or Cough
Genital / Urological: Negative Dysuria
Neurological: Negative Headache
Vital Signs
Temp Pulse Resp BP Pulse Ox
97.9 F 78 18 123/69 97
01/23/25 08:52 01/23/25 08:52 01/23/25 08:52 01/23/25 08:52 01/23/25 07:37
Physical Exam
Physical Exam
Constitutional: No Acute Distress and Comfortable
Cardiovascular: Regular Rate and S1/S2
Pulmonary: Clear, Symmetric and Non Labored
Gastrointestinal: Soft and Non Tender
Musculoskeletal: Other (Right anterior upper chest tender to touch. Has a lidocaine patch on.)
Skin: Warm
Neurological: Awake, Alert and Oriented
Psychological: Calm
Lab / Diagnostic Study Results
01/23/25 04:34
01/23/25 04:34
Abs Immat Gran (auto) 0.0 10^3/uL (0-0.05) 01/22/25 17:28
Absolute Neuts (auto) 0.0 10^3/uL (1.4-6.5) L* 01/22/25 17:28
Absolute Lymphs (auto) 0.5 10^3/uL (1.2-3.4) L 01/22/25 17:28
Absolute Monos (auto) 0.0 10^3/uL (0.1-0.6) L 01/22/25 17:28
Absolute Basos (auto) 0.0 10^3/uL (0-0.2) 01/22/25 17:28
Immature Gran % 0.0 % (0-0.5) 01/22/25 17:28
Neutrophils % 0.0 % (42.2-75.2) L 01/22/25 17:
Lymphocytes % 95.8 % (20.5-51.1) H 01/22/25 17:
Monocytes % 4.2 % (1.7-9.3) 01/22/25 17:
Eosinophils % 0.0 % (0-6) 01/22/25:
Basophils % 0.0 % (0-2) 01/22/25 17:28
Lactic Acid 0.8 mmol/L (0.7-2.0) 01/22/25:
Ur Squamous Epith Cells 11-15 /LPF (Few) 01/22/25 18:27
Microbiology Results
Micro:
01/23/25 00:22 Legionella Urinary Antigen - Final
Urine Negative for Legionella pneumophila Serogroup 1 antigen.
A negative result does not rule out the possiblity of
Legionella infection due to other serogroups or species of
Legionella. Clinical correlation is recommended.
Streptococcus pneumoniae Antigen (M - Final
Negative for Streptococcus pneumoniae antigen.
A negative result does not exclude infection with
Streptococcus pneumoniae. Clinical correlation is
recommended.
01/22/25 23:26 MRSA Screen - Pending
Nose
01/22/25 18:33 Influenza Types A & B (RADHA) - Final
Nasal Swab Negative for Influenza A & B, NAAT
Negative results must be combined with clinical observations
and patient history.
Nucleic Acid Amplification test (NAAT)performed on the
[employer] platform.
01/22/25 18:27 Urine Culture - Pending
Urine
01/22/25 18:27 Blood Culture - Pending
Blood/Venous
01/22/25 18:27 Blood Culture - Pending
Blood/Venous
01/22/25 17:28 Blood Culture - Pending
Blood/Venous
CR Chest - 2 Views 01/22/25: Right upper lobe airspace opacity, most compatible with pneumonia. Recommend radiographic follow-up to resolution.
Left PICC with the catheter tip at the cavoatrial junction.
No pleural effusion or pneumothorax. The cardiomediastinal silhouette is normal. Chronic mild degenerative changes of the spine
Assessment / Plan
#Fever
#Neutropenia
#pna
#AML
#Polymyalgia rheumatica
#Pancytopenia
#hypoNa
- no documented fever in hosp.
- CXR from 01/22/2025 noted
- currently on vanco, cefepime and azithro; will continue for now
if no response will add antifungal- hold off for now
- Blood cultures pending , urine culture pending,
- Flu and COVID-negative
- MRSA pending
- Hep C ab pending
- Legionella Urine Legionella and strep pneumo negative
[2025-01-23 09:08] VITALS: BP 139/67
[2025-01-23 09:33] VITALS: BP 125/68
--- NOTE | 2025-01-23 10:01 | W.PN.HOSP.TC ---
Today's Communication/Plan
-
see A/P
Assessment / Plan
Assessment / Plan
HPI: 69 y/o male past medical history of polymyalgia rheumatica, and acute myeloid leukemia who presented with fevers. Patient was at the infusion center on DOA and received 1 unit PRBCs. Upon returning home he spiked a fever to 101F. He contacted
his oncologist who recommended him go to the emergency department for evaluation. He has known pancytopenia and blood work revealed significant neutropenia. Patient's only complaint was some right sided musculoskeletal chest pain which has been
ongoing for the past month or so.
Chest X-Ray:
Right Upper Lobe Pneumonia in similar location to patient's right sided chest pain.
A/P:
# Likely sepsis POA with Right Upper Lobe Pneumonia/CAP
# Immunocompromised state with Pancytopenia and AML undergoing treatment
Fever post transfusion could be neutropenic fever vs transfusion reaction
Continue cefepime, Azithromycin and Vancomycin
Check MRSA screen
Follow cultures
Noted urinary Strep and Legionella Ags are negative
Noted COVID and Influenza swab are negative
ID CS for possible neutropenic fever
# Pancytopenia
Blood consent obtained and scanned into chart
transfused 1 unit PRBC
Monitor counts closely
# AML
Hold Enasidenib and Venteoclex
Hold cefpodoxime prophylaxis while on cefepime
Continue acyclovir prophylaxis
Onc CS
# Mild hyponatremia
monitor
DVT proph: SCDs
Code Status: Full Code
DW RN
total time 51 min
Anticipated Discharge: > 48 hours
Subjective/Interval History
-
Date of Service: January 23, 2025
Objective Data
-
Labs:
Laboratory Results
01/23/25
04:34
WBC 0.4 L*
Hgb 6.5 L*
Hct 18.6 L*
Plt Count 9 L* D
Sodium 134 L
Potassium 3.8
Chloride 105
Carbon Dioxide 24
BUN 10
Creatinine 0.6 L
Glucose 122 H
Calcium 8.1 L
Total Bilirubin 2.4 H
AST 12 L
ALT 10
Alkaline Phosphatase 55
Vital Signs:
Vital Signs
Temp Pulse Resp BP Pulse Ox
36.9 C 70 18 139/67 97
01/23/25 09:08 01/23/25 09:08 01/23/25 09:08 01/23/25 09:08 01/23/25 07:37
I&O
01/22/25 01/23/25 01/24/25
06:59 06:59 06:59
Intake Total 373 / 373
Balance 373 / 373
Review of Systems
-
History Source: Patient
Respiratory: Reports Pleurisy (R chest)
Physical Exam
-
General: Well Developed, Well Nourished, No Apparent Distress, Comfortable and Conversant; Negative Respiratory Distress
HEENT: Normocephalic, Atraumatic, Nose Appears Normal and Ears Appear Normal; Negative Oxygen
Respiratory: Clear to Auscultation and Non Labored Respirations; Negative Accessory Resp Muscle Use
Cardiac: Regular Rhythm and S1/S2
GI: Soft, Nontender, Nondistended and Normal Bowel Sounds
Skin: Warm and Dry
Neuro: Awake, Alert, Oriented and AO x 3
Psych: Calm and Intact Judgement/Insight
Data Reviewed
-
Diagnostic Radiology: Image personally visualized and interpreted and Report Reviewed by me
Labs: Labs Reviewed by me
--- NOTE | 2025-01-23 10:29 | CM ---
Patient seen at bedside in [facility]. Patient states that he lives with his in a 2 story home. Patient states that he is concerned about his , she is in the [facility] since monday but when she talked to him yesterday she was very angry and he
told the c s s representative that he did not feel safe with her returning home. Patient has no DME, Patient family is supportive and working to clarify discharge planning for from [facility]. Patient indicated that he would call police if needed but he
would like to talk to psychiatry if possible. CM tt to physician. Patient PCP is Dr. Arias and he uses the [facility] in [place]. Patient is independent of ADL's and IADL's. CM will continue to follow for discharge planning needs.
PLan; return home, watch for VN needs/psych assessment
--- NOTE | 2025-01-23 11:23 | PHA.VAN.FU ---
Vancomycin Assessment / Plan
- Assessment
Renal Function: Stable
WBC's are: Trending Down (0.5-->0.4)
Neutropenia: 0 01/22
In the past 24 hrs, patient has been: Afebrile
Concomitant Antimicrobials: Cefepime, azithromycin
- Dosing Plan
Continue: Vancomycin 1250mg Q12h
- Monitoring Plan
No level(s) ordered at this time: Consider levels in next few days.
- Follow Up
Pharmacy will continue to follow.
Vancomycin Follow UP
- -
Patient Age: 69
Patient Sex: Male
Vancomycin Day #: 2
Indication: Pulmonary/Respiratory
Requesting Provider: Chidi Cherry
Pertinent Antimicrobial Allergies:
Levofloxacin w. unknown reaction.
Height / Weight:
Height 6 ft 1 in
Actual Weight 70.579 kg
Pertinent Past Medical History: History of polymyalgia rheumatica, and acute myeloid leukemia
- Vital Signs / Lab Results
Temp Pulse Resp BP Pulse Ox
98.4 F 70 18 139/67 97
01/23/25 09:08 01/23/25 09:08 01/23/25 09:08 01/23/25 09:08 01/23/25 07:37
Lab Results - Hematology
01/22/25 01/23/25
17:28 04:34
WBC 0.5 L* 0.4 L*
Lab Results - Chemistry
01/22/25 01/23/25
17:28 04:34
BUN 11 10
Creatinine 0.6 L 0.6 L
Estimated Creat Clear 114
Albumin 4.0 3.4 L
01/22/25
17:28
Lactic Acid 0.8
Lab Results - Urine
01/22/25
18:27
Urine Nitrite (Reflex) Negative
Leukocyte Esterase Rfl 1+ A
Ur Squamous Epith Cells 11-15
Microbiology Results
01/23/25 00:22 Legionella Urinary Antigen - Final
Urine Negative for Legionella pneumophila Serogroup 1 antigen.
A negative result does not rule out the possiblity of
Legionella infection due to other serogroups or species of
Legionella. Clinical correlation is recommended.
Streptococcus pneumoniae Antigen (M - Final
Negative for Streptococcus pneumoniae antigen.
A negative result does not exclude infection with
Streptococcus pneumoniae. Clinical correlation is
recommended.
01/22/25 18:33 Influenza Types A & B (RADHA) - Final
Nasal Swab Negative for Influenza A & B, NAAT
Negative results must be combined with clinical observations
and patient history.
Nucleic Acid Amplification test (NAAT)performed on the
[employer] platform.
[2025-01-23] MEDS: VFEND 200 MG PO ×2 (13:01→20:02)
[2025-01-23 15:00] VITALS: BP 149/62
[2025-01-23] MEDS: ZITHROMAX 500 MG PO (17:02)
--- NOTE | 2025-01-23 17:17 | VATNOTE ---
assessed left picc per usual for daily rounds; biopatch yellow; inquired of pt. and he stated that 'all of the biopatches are yellow'; ' I have some at home'; did not redress Picc and apply one of VAT's biopatch's.
[2025-01-23 19:29] LABS: Hepatitis C Antibody Negative (Negative)
[2025-01-23] MEDS: REMOVE LIDOCAINE PATCH 1 PATCH REMOVE (20:01)
[2025-01-23] MEDS: TYLENOL 650 MG PO (23:22)
[2025-01-23 23:45] VITALS: BP 135/70
[2025-01-24] MEDS: MAXIPIME 2000 MG IV ×4 (00:49→23:39)
[2025-01-24] MEDS: STERILE WATER FOR INJECTION 10 ML IV ×4 (00:49→23:39)
[2025-01-24 05:25] LABS: Hematocrit 23.0 % (39.0-52.0); Hemoglobin 8.0 g/dL (13.0-18.0); Mean Corp Hgb Conc. 34.8 g/dL (33.0-37.0); Mean Corpuscular Volume 89.1 fL (80.0-94.0); Platelet Count 18 10^3/uL (130-400); Red Cell Dist. Width 14.3 % (11.5-14.5)
[2025-01-24 05:43] LABS: Blood Urea Nitrogen 9 mg/dl (9-20); Calcium 8.6 mg/dl (8.4-10.2); Carbon Dioxide 26 mmol/L (22-30); Chloride 105 mmol/L (98-107); Estimated Creatinine Clearance 114 ml/min; Glucose 126 mg/dl (70-99); Magnesium 2.1 mg/dl (1.6-2.3); Potassium 3.8 mmol/L (3.5-5.1); Sodium 137 mmol/L (135-145); eGFR > 60.00
[2025-01-24] MEDS: VANCOCIN 275 MG IV ×2 (05:56→16:40)
[2025-01-24 07:00] VITALS: BP 129/56
[2025-01-24] MEDS: LIDOCAINE 4% PATCH 1 PATCH TOPICAL (07:00)
[2025-01-24] MEDS: VFEND 200 MG PO ×2 (07:00→20:15)
[2025-01-24] MEDS: ZOVIRAX 800 MG PO ×2 (07:00→20:15)
[2025-01-24] MEDS: NON-FORMULARY ITEM 100 MG PO (07:01)
[2025-01-24 07:05] LABS: Anisocytosis Slight; Microcytosis Slight; Normal RBC Morphology No; Platelets Checked Yes
[2025-01-24 07:06] LABS: Hypochromasia Slight
[2025-01-24 07:07] LABS: Total Cells Counted 100
[2025-01-24 07:10] LABS: Absolute Neutrophils -Man Diff 0.0 10^3/uL (1.4-6.5)
--- NOTE | 2025-01-24 08:47 | W.PN.HOSP.TC ---
Today's Communication/Plan
-
see A/P
Assessment / Plan
Assessment / Plan
HPI: 69 y/o male past medical history of polymyalgia rheumatica, and acute myeloid leukemia who presented with fevers. Patient was at the infusion center on [facility] and received 1 unit PRBCs. Upon returning home he spiked a fever to 101F. He contacted
his oncologist who recommended him go to the emergency department for evaluation. He has known pancytopenia and blood work revealed significant neutropenia. Patient's only complaint was some right sided musculoskeletal chest pain which has been
ongoing for the past month or so.
Chest X-Ray:
Right Upper Lobe Pneumonia in similar location to patient's right sided chest pain.
A/P:
# Likely sepsis POA with Right Upper Lobe Pneumonia/CAP
# Immunocompromised state with Pancytopenia and AML undergoing treatment
Fever post transfusion could be neutropenic fever vs transfusion reaction
Continue cefepime, Azithromycin
Off IV vanco, MRSA screen negative
So far cultures negative, urinary Strep and Legionella Ags negative, COVID and Influenza negative
ID on board
# Pancytopenia
Blood consent obtained and scanned into chart
transfused 1 unit PRBC , 1 unit platelet
Hgb improved to 8.0 today, Platelet improved to 18 today
# AML
Hold Enasidenib and Venteoclex
Hold cefpodoxime prophylaxis while on cefepime
Continue acyclovir prophylaxis
Onc on board.
Per Onc REVERBERAT[employer] FURNACE OPERATOR, pt's leukemia specialist Dr Reyez would like pt to be transferred to [place], however, pt is reluctant to be transferred. Coordinating care with Onc team.
# Mild hyponatremia, resolved
monitor
DVT proph: SCDs
Code Status: Full Code
DW Onc team
total time 51 min
Anticipated Discharge: 24 - 48 hours
Subjective/Interval History
-
Date of Service: January 24, 2025
Objective Data
-
Labs:
Laboratory Results
01/24/25
04:26
WBC 0.7 L*
Hgb 8.0 L D
Hct 23.0 L
Plt Count 18 L* D
Sodium 137
Potassium 3.8
Chloride 105
Carbon Dioxide 26
BUN 9
Creatinine 0.6 L
Glucose 126 H
Calcium 8.6
Vital Signs:
Vital Signs
Temp Pulse Resp BP Pulse Ox
36.9 C 80 16 129/56 98
01/24/25 07:00 01/24/25 07:00 01/24/25 07:00 01/24/25 07:00 01/24/25 07:00
I&O
01/23/25 01/24/25 01/25/25
06:59 06:59 06:59
Intake Total 1073 / 1073
Balance 1073 / 1073
Review of Systems
-
History Source: Patient
Respiratory: Reports Pleurisy (R chest)
Physical Exam
-
General: Well Developed, Well Nourished, No Apparent Distress, Comfortable, Conversant and Appears Chronically Ill; Negative Respiratory Distress
HEENT: Normocephalic, Atraumatic, Nose Appears Normal and Ears Appear Normal; Negative Oxygen
Respiratory: Clear to Auscultation and Non Labored Respirations; Negative Accessory Resp Muscle Use
Cardiac: Regular Rhythm and S1/S2
GI: Soft, Nontender, Nondistended and Normal Bowel Sounds
Skin: Warm and Dry
Neuro: Awake, Alert, Oriented and AO x 3
Psych: Calm and Intact Judgement/Insight
Data Reviewed
-
Diagnostic Radiology: Image personally visualized and interpreted and Report Reviewed by me
Labs: Labs Reviewed by me
--- NOTE | 2025-01-24 08:59 | PHA.VAN.FU ---
Vancomycin Assessment / Plan
- Assessment
Renal Function: Stable
WBC's are: Stable
In the past 24 hrs, patient has been: Afebrile
Concomitant Antimicrobials: AZITHROMYCIN, CEFEPIME, VORIZONAZOLE
- Dosing Plan
Continue: VANCO 1250MG Q12H
- Monitoring Plan
Peak Level: 01/24 @1800
Trough Level: 01/25 @0530
- Follow Up
Pharmacy will continue to follow.
Vancomycin Follow UP
- -
Patient Age: 69
Patient Sex: Male
Vancomycin Day #: 3
Indication: Pulmonary/Respiratory
Requesting Provider: Chidi Cherry
Pertinent Antimicrobial Allergies:
Levofloxacin w. unknown reaction.
Height / Weight:
Height 6 ft 1 in
Actual Weight 70.579 kg
Pertinent Past Medical History: History of polymyalgia rheumatica, and acute myeloid leukemia
- Vital Signs / Lab Results
Temp Pulse Resp BP Pulse Ox
98.5 F 80 16 129/56 98
01/24/25 07:00 01/24/25 07:00 01/24/25 07:00 01/24/25 07:00 01/24/25 07:00
Lab Results - Hematology
01/22/25 01/23/25 01/24/25
17:28 04:34 04:26
WBC 0.5 L* 0.4 L* 0.7 L*
Band Neutrophils 0
Lab Results - Chemistry
01/22/25 01/23/25 01/24/25
17:28 04:34 04:26
BUN 11 10 9
Creatinine 0.6 L 0.6 L 0.6 L
Estimated Creat Clear 114 114
Albumin 4.0 3.4 L
01/22/25
17:28
Lactic Acid 0.8
Microbiology Results
01/22/25 23:26 MRSA Screen - Final
Nose No Methicillin Resistant Staphylococcus aureus isolated.
01/22/25 18:27 Blood Culture - Preliminary
Blood/Venous No Growth in 24 hours- Final report to follow
01/22/25 18:27 Blood Culture - Preliminary
Blood/Venous No Growth in 24 hours- Final report to follow
01/22/25 17:28 Blood Culture - Preliminary
Blood/Venous No Growth in 24 hours- Final report to follow
01/22/25 18:27 Urine Culture - Final
Urine NO GROWTH
01/23/25 00:22 Legionella Urinary Antigen - Final
Urine Negative for Legionella pneumophila Serogroup 1 antigen.
A negative result does not rule out the possiblity of
Legionella infection due to other serogroups or species of
Legionella. Clinical correlation is recommended.
Streptococcus pneumoniae Antigen (M - Final
Negative for Streptococcus pneumoniae antigen.
A negative result does not exclude infection with
Streptococcus pneumoniae. Clinical correlation is
recommended.
01/22/25 18:33 Influenza Types A & B (RADHA) - Final
Nasal Swab Negative for Influenza A & B, NAAT
Negative results must be combined with clinical observations
and patient history.
Nucleic Acid Amplification test (NAAT)performed on the
[employer] platform.
--- NOTE | 2025-01-24 09:59 | W.PN.ID1 ---
Addendum entered and electronically signed by Tamiko Rodrigez MD 01/24/25 12:41:
I saw and evaluated the patient. I reviewed the resident�s note and agree with findings and plan as documented in the resident�s note.
S: Mild cough nonproductive
Right upper chest all pain persists, pain positional and with movement.
O; Afebrile
Oral: no lesions/ulcers
lungs clear
chest wall - no lesions/rash; nontender
A/P:
# RUL CAP
# Fever - resolved
# Prolonged neutropenia due to AML
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
-Ucx neg
-Blood cx neg to date
- Urine legionella Ag and strep pneumo ag neg (low sensitivity tests)
- Continue cefepime 2g IV q8h, azithromycin 500mg po daily; day 3
- Continue Acyclovir ppx.
- Hem/onc started Voriconazole 200mg po bid ppx 01/23.
Original Note:
Date of Service
Date of Service: January 24, 2025
AFVSS
Today's Communication
currently on cefepime 2g q8h and azithro; will continue for now
per patient patient is being transferred to [facility] as suggested by onc team
Assessment / Plan
#Fever
#Neutropenia
#pna RUL
#AML
#Polymyalgia rheumatica
#Pancytopenia
#hypoNa; resolved
- no documented fever in hosp.
- CXR from 01/22/2025 noted
- currently on cefepime 2g q8h and azithro; will continue for now ; vanco was dc since mrsa neg
- Continue Acyclovir ppx. Voriconazole ppx
- Blood cultures NGTD, urine culture negative
- Flu and COVID-negative
- Hep C ab neg
- Legionella Urine Legionella and strep pneumo negative.
Chief Complaint
-: Fever
Subjective / Review of Systems
Review of Systems: No Fever, No Chills, No Headache, No Cough, No Sputum Production, No Chest Pain, No Abdominal Pain, No Diarrhea, No Dysuria and No Skin Rash
Vital Signs / Physical Exam
Vital Signs
Vital Signs
Temp Pulse Resp BP Pulse Ox
98.5 F 80 16 129/56 98
01/24/25 07:00 01/24/25 07:00 01/24/25 07:00 01/24/25 07:00 01/24/25 07:00
Physical Exam
Constitutional: No Acute Distress and Comfortable
Cardiovascular: Regular Rate and S1/S2
Pulmonary: Clear and Non Labored
Gastrointestinal: Soft and Non Tender
Neurological: Awake, Alert and Oriented
Psychological: Calm
Objective Data
Lab Data
Lab Results
01/24/25 04:26
01/24/25 04:26
Estimated Creat Clear 114 ml/min 01/24/25 04:26
Lactic Acid 0.8 mmol/L (0.7-2.0) 01/22/25 17:28
Total Bilirubin 2.4 mg/dl (0.2-1.3) H 01/23/25 04:34
AST 12 U/L (17-59) L 01/23/25 04:34
ALT 10 U/L (0-50) 01/23/25 04:34
Alkaline Phosphatase 55 U/L (38-126) 01/23/25 04:34
Most recent labs reviewed.
Micro Results:
01/22/25 23:26 MRSA Screen - Final
Nose No Methicillin Resistant Staphylococcus aureus isolated.
01/22/25 18:27 Blood Culture - Preliminary
Blood/Venous No Growth in 24 hours- Final report to follow
01/22/25 18:27 Blood Culture - Preliminary
Blood/Venous No Growth in 24 hours- Final report to follow
01/22/25 17:28 Blood Culture - Preliminary
Blood/Venous No Growth in 24 hours- Final report to follow
01/22/25 18:27 Urine Culture - Final
Urine NO GROWTH
01/23/25 00:22 Legionella Urinary Antigen - Final
Urine Negative for Legionella pneumophila Serogroup 1 antigen.
A negative result does not rule out the possiblity of
Legionella infection due to other serogroups or species of
Legionella. Clinical correlation is recommended.
Streptococcus pneumoniae Antigen (M - Final
Negative for Streptococcus pneumoniae antigen.
A negative result does not exclude infection with
Streptococcus pneumoniae. Clinical correlation is
recommended.
01/22/25 18:33 Influenza Types A & B (RADHA) - Final
Nasal Swab Negative for Influenza A & B, NAAT
Negative results must be combined with clinical observations
and patient history.
Nucleic Acid Amplification test (NAAT)performed on the
[employer] platform.
CR Chest - 2 Views 01/22/25: Right upper lobe airspace opacity, most compatible with pneumonia. Recommend radiographic follow-up to resolution.
Left PICC with the catheter tip at the cavoatrial junction.
No pleural effusion or pneumothorax. The cardiomediastinal silhouette is normal. Chronic mild degenerative changes of the spine
--- NOTE | 2025-01-24 12:18 | W.PN.ONC2 ---
Documented by User: BENITO Hinds 01/24/25 14:28
Today's Communication / Plan
-
Discussed case with Dr. Reyez who recommends transfer to [place] -Pt accepted to [facility] via transfer center by Dr. Elena -update provided to primary service
Impression
Impression
AML s/p BMBx 01/20, prelim flow with <10% blasts
pancytopenia
neutropenic fever
elevated Tbili
hyponatremia
Plan
Plan
follow up BMBx results from 01/20
due for cycle 5 azacitidine on 01/27
neutropenic precautions
this cycle of Venclexta completed 01/19
continue enasidenib 100mg daily
transfuse Hgb <7 or as needed for sxs anemia
transfuse platelets <20 with NF <50 prn bleeding
avoid NSAIDs, antiplatelet, and anticoagulation with platelet count <50,000
Transplant evaluation underway at [place]
CMV negative, irradiated blood products
continue acyclovir, voriconazole ppx
appreciate ID input, follow cultures
Subjective/Objective
Subjective
no new complaints
denies bleeding
afebrile, no hypoxia
Vital Signs:
Vital Signs
Temp Pulse Resp BP Pulse Ox
98.5 F 80 16 129/56 98
01/24/25 07:00 01/24/25 07:00 01/24/25 07:00 01/24/25 07:00 01/24/25 07:00
Lab Results:
Laboratory Data
WBC 0.7 10^3/uL (4.8-10.8) L* 01/24/25 04:26
Hgb 8.0 g/dL (13.0-18.0) L D 01/24/25 04:26
Plt Count 18 10^3/uL (130-400) L* D 01/24/25 04:26
eGFR > 60.00 01/24/25 04:26
Physical Exam
HEENT: Moist Mucous Membranes; No Jaundice
Pulmonary: Other (unlabored)
GI: Soft
Extremities: Pulses Present; No Edema
Neuro: Non Focal
Orders
Orders
Orders From Last 24 Hours
01/23/25 12:00
Voriconazole [Vfend] 200 mg PO Q12
01/24/25 08:00
Enasidenib See Dose Instructions PO DAILY

Documented by User: Shahzad Doyle MD 01/24/25 14:31
Plan
Plan
follow up BMBx results from 01/20
due for cycle 5 azacitidine on 01/27
neutropenic precautions
this cycle of Venclexta completed 01/19
continue enasidenib 100mg daily
transfuse Hgb <7 or as needed for sxs anemia
transfuse platelets <20 with NF <50 prn bleeding
avoid NSAIDs, antiplatelet, and anticoagulation with platelet count <50,000
Transplant evaluation underway at [place]
CMV negative, irradiated blood products
continue acyclovir, voriconazole ppx
appreciate ID input, follow cultures
Hematology Addendum:
Patient seen and evaluated and agree w/ BOLT THREADER note and plan as outlined
-transfer to [place] for continued management of AML
--- NOTE | 2025-01-24 13:54 | W.PN.UPDATE ---
Update Note
Progress Note Update
Pt now willing to go to [place]. Transfer initiated, patient accepted by Dr. Elena.
Updated RN
--- NOTE | 2025-01-24 14:33 | CM ---
Spoke with patient in room .
He said MD is transferring him to [place] when bed available.
Pt to go via BLS ambulance .
Dr Elena is receiving MD.
Maintained on IV antibiotics.
[facility] transfer line # [phone]
PLAN To [facility] when bed available
[2025-01-24 15:00] VITALS: BP 143/56
[2025-01-24] MEDS: TYLENOL 650 MG PO ×2 (15:50→21:26)
[2025-01-24] MEDS: ZITHROMAX 500 MG PO (16:39)
[2025-01-24] MEDS: REMOVE LIDOCAINE PATCH 1 PATCH REMOVE (20:15)
[2025-01-24 23:00] VITALS: BP 116/52
[2025-01-25 05:36] LABS: Blood Urea Nitrogen 10 mg/dl (9-20); Calcium 8.4 mg/dl (8.4-10.2); Carbon Dioxide 27 mmol/L (22-30); Chloride 104 mmol/L (98-107); Estimated Creatinine Clearance 114 ml/min; Glucose 127 mg/dl (70-99); Potassium 3.8 mmol/L (3.5-5.1); Sodium 136 mmol/L (135-145); eGFR > 60.00
[2025-01-25 05:49] LABS: Hematocrit 21.3 % (39.0-52.0); Hemoglobin 7.5 g/dL (13.0-18.0); Mean Corp Hgb Conc. 35.2 g/dL (33.0-37.0); Mean Corpuscular Volume 89.5 fL (80.0-94.0); Nucleated Red Blood Cells % 0 % (-); Platelet Count 11 10^3/uL (130-400); Red Cell Dist. Width 14.2 % (11.5-14.5)
[2025-01-25] MEDS: VANCOCIN 275 MG IV (06:15)
[2025-01-25 07:00] VITALS: BP 123/54
--- NOTE | 2025-01-25 08:01 | PHA.VAN.FU ---
Vancomycin Assessment / Plan
- Assessment
Renal Function: Stable
WBC's are: Stable
In the past 24 hrs, patient has been: Febrile (TMAX 100.5 F)
- Assessment - Therapeutic Drug Monitoring
Extrapolated Cmax (mcg/mL): 21.9
Peak level was drawn: More than 3 hours after previous dose
Extrapolated Cmin (mcg/mL): 10.5
Trough Drawn: Appropriately
Levels were drawn: At steady state
Calculated AUC (mcg*h/mL): 373
Calculated ke: 0.0701
Calculated half life (H): 9.9
Calculated Vd (L): 95.46
Calculated Vanc CL (ml/min): 111.54
- Dosing Plan
Adjust Regimen to: VANCO 1500MG Q12
New Regimen Predicts: AUC (464), Peak (27.6), Trough (12.8)
- Monitoring Plan
No level(s) ordered at this time: CONSIDER LEVEL AT STEADY STATE
- Follow Up
Pharmacy will continue to follow.
Vancomycin Follow UP
- -
Patient Age: 69
Patient Sex: Male
Vancomycin Day #: 4
Indication: Pulmonary/Respiratory
Requesting Provider: Chidi Cherry
Pertinent Antimicrobial Allergies:
Levofloxacin w. unknown reaction.
Height / Weight:
Height 6 ft 1 in
Actual Weight 70.579 kg
Pertinent Past Medical History: History of polymyalgia rheumatica, and acute myeloid leukemia
- Vital Signs / Lab Results
Temp Pulse Resp BP Pulse Ox
100.2 F 83 18 116/52 98
01/24/25 23:00 01/24/25 23:00 01/24/25 23:00 01/24/25 23:00 01/24/25 23:00
Lab Results - Hematology
01/22/25 01/23/25 01/24/25
17:28 04:34 04:26
WBC 0.5 L* 0.4 L* 0.7 L*
Band Neutrophils 0
01/25/25
05:02
WBC 0.5 L*
Band Neutrophils
Lab Results - Chemistry
01/22/25 01/23/25 01/24/25
17:28 04:34 04:26
BUN 11 10 9
Creatinine 0.6 L 0.6 L 0.6 L
Estimated Creat Clear 114 114
Albumin 4.0 3.4 L
01/25/25
05:02
BUN 10
Creatinine 0.6 L
Estimated Creat Clear 114
Albumin
01/22/25
17:28
Lactic Acid 0.8
Microbiology Results
01/22/25 18:27 Blood Culture - Preliminary
Blood/Venous No Growth in 48 hours- Final report to follow
01/22/25 18:27 Blood Culture - Preliminary
Blood/Venous No Growth in 48 hours- Final report to follow
01/22/25 17:28 Blood Culture - Preliminary
Blood/Venous No Growth in 48 hours- Final report to follow
01/22/25 23:26 MRSA Screen - Final
Nose No Methicillin Resistant Staphylococcus aureus isolated.
01/22/25 18:27 Urine Culture - Final
Urine NO GROWTH
01/23/25 00:22 Legionella Urinary Antigen - Final
Urine Negative for Legionella pneumophila Serogroup 1 antigen.
A negative result does not rule out the possiblity of
Legionella infection due to other serogroups or species of
Legionella. Clinical correlation is recommended.
Streptococcus pneumoniae Antigen (M - Final
Negative for Streptococcus pneumoniae antigen.
A negative result does not exclude infection with
Streptococcus pneumoniae. Clinical correlation is
recommended.
Therapeutic Drug Monitoring
Vancomycin Peak 17.5 ug/ml (18-26) L 01/24/25 21:20
Vancomycin Trough 10.2 ug/ml (5-20) 01/25/25 05:02
[2025-01-25] MEDS: MAXIPIME 2000 MG IV ×2 (08:45→15:22)
[2025-01-25] MEDS: STERILE WATER FOR INJECTION 10 ML IV ×2 (08:45→15:22)
[2025-01-25] MEDS: LIDOCAINE 4% PATCH 1 PATCH TOPICAL (08:46)
[2025-01-25] MEDS: ZOVIRAX 800 MG PO ×2 (08:47→21:22)
[2025-01-25] MEDS: VFEND 200 MG PO ×2 (08:47→21:22)
[2025-01-25] MEDS: NON-FORMULARY ITEM 100 MG PO (08:47)
--- NOTE | 2025-01-25 10:48 | W.PN.ONC ---
Today's Communication / Plan
-
For transfer to [facility]
Continue anti-infectives
Monitor CBC daily
transfuse Hgb <7 or as needed for sxs anemia
transfuse platelets <20 with NF <50 prn bleeding
Needs CMV neg and irradiated products
avoid NSAIDs, antiplatelet, and anticoagulation with platelet count <50,000
neutropenic precautions
this cycle of Venclexta completed 01/19
continue enasidenib 100mg daily
Impression
Impression
AML s/p BMBx 01/20, prelim flow with <10% blasts
pancytopenia
neutropenic fever
elevated Tbili
hyponatremia
Plan
Plan
For transfer to [facility]
Continue anti-infectives
Monitor CBC daily
transfuse Hgb <7 or as needed for sxs anemia
transfuse platelets <20 with NF <50 prn bleeding
Needs CMV neg and irradiated products
avoid NSAIDs, antiplatelet, and anticoagulation with platelet count <50,000
neutropenic precautions
this cycle of Venclexta completed 01/19
continue enasidenib 100mg daily
Subjective/Objective
Subjective/Objective
no specific complaints
stressed as his was 302'd to [place] in [facility] for nalini/suicidal ideation in the setting of suspected recurrent breast cancer
Vital Signs:
Vital Signs
Temp Pulse Resp BP Pulse Ox
98.5 F 73 18 123/54 98
01/25/25 07:00 01/25/25 07:00 01/25/25 07:00 01/25/25 07:00 01/25/25 07:00
Lab Results:
Laboratory Data
WBC 0.5 10^3/uL (4.8-10.8) L* 01/25/25 05:02
Hgb 7.5 g/dL (13.0-18.0) L 01/25/25 05:02
Plt Count 11 10^3/uL (130-400) L* D 01/25/25 05:02
eGFR > 60.00 01/25/25 05:02
--- NOTE | 2025-01-25 12:12 | W.PN.HOSP.TC ---
Today's Communication/Plan
-
Awaiting transfer
Assessment / Plan
Assessment / Plan
Initial presentation:
69 y/o male past medical history of polymyalgia rheumatica, and acute myeloid leukemia who presented with fevers. Patient was at the [facility] center on DO[facility] and received 1 unit PRBCs. Upon returning home he spiked a fever to 101F. He contacted his
oncologist who recommended him go to the emergency department for evaluation. He has known pancytopenia and blood work revealed significant neutropenia. Patient's only complaint was some right sided musculoskeletal chest pain which has been ongoing
for the past month or so.
Chest X-Ray:
Right Upper Lobe Pneumonia in similar location to patient's right sided chest pain.
Diagnosis present prior to admission:
1. Primary hypertension
2. MDS (myelodysplastic syndrome)
3. Hypercholesteremia
4. PMR (polymyalgia rheumatica)
Hospital course by problem and A/P:
1. Likely sepsis POA with Right Upper Lobe Pneumonia/CAP
Complicated by Immunocompromised state with Pancytopenia and AML undergoing treatment
Complicated by Fever post transfusion could be neutropenic fever vs transfusion reaction
Continue cefepime, Azithromycin
Off IV vanco, MRSA screen negative
So far cultures negative, urinary Strep and Legionella Ags negative, COVID and Influenza negative
ID on board
2. Pancytopenia
Blood consent obtained and scanned into chart
transfused 1 unit PRBC , 1 unit platelet
Hgb improved to 8.0 then 7.5 today, Platelet improved to 18 then 11 today
this is likely a complication of the AML.
AML
Hold Enasidenib and Venteoclex
Hold cefpodoxime prophylaxis while on cefepime
Continue acyclovir prophylaxis
Onc on board.
Today's plan from oncology:
'For transfer to [facility] bed
Continue anti-infectives
Monitor CBC daily
transfuse Hgb <7 or as needed for sxs anemia
transfuse platelets <20 with NF <50 prn bleeding
Needs CMV neg and irradiated products
avoid NSAIDs, antiplatelet, and anticoagulation with platelet count <50,000
neutropenic precautions
this cycle of Venclexta completed 01/19
continue enasidenib 100mg daily'
3. Mild hyponatremia, resolved
monitor
DVT proph: SCDs
Code Status: Full Code
Anticipated Discharge: 24 - 48 hours
Subjective/Interval History
-
Date of Service: January 25, 2025
No new complaints, feels ok.
Objective Data
-
Labs:
Laboratory Results
01/25/25
05:02
WBC 0.5 L*
Hgb 7.5 L
Hct 21.3 L
Plt Count 11 L* D
Sodium 136
Potassium 3.8
Chloride 104
Carbon Dioxide 27
BUN 10
Creatinine 0.6 L
Glucose 127 H
Calcium 8.4
Vital Signs:
Vital Signs
Temp Pulse Resp BP Pulse Ox
98.5 F 73 18 123/54 98
01/25/25 07:00 01/25/25 07:00 01/25/25 07:00 01/25/25 07:00 01/25/25 07:00
I&O
01/24/25 01/25/25 01/26/25
06:59 06:59 06:59
Intake Total 1073 / 1073 703 / 703
Balance 1073 / 1073 703 / 703
Review of Systems
-
History Source: Patient
All other systems: Reviewed and negative
Physical Exam
-
General: Well Developed, Well Nourished, No Apparent Distress and Comfortable
HEENT: Normocephalic, Atraumatic and Moist Mucous Membranes
Respiratory: Clear to Auscultation
Cardiac: Regular Rhythm and S1/S2
GI: Soft, Nontender and Nondistended
Musculoskeletal: No Clubbing, No Cyanosis and No Edema
Skin: Warm and Dry
Neuro: Awake, Alert and Oriented
Psych: Calm
Data Reviewed
-
Labs: Labs Reviewed by me
[2025-01-25 15:00] VITALS: BP 120/59
[2025-01-25] MEDS: ZITHROMAX 500 MG PO (17:45)
[2025-01-25] MEDS: REMOVE LIDOCAINE PATCH 1 PATCH REMOVE (21:22)
[2025-01-25] MEDS: TYLENOL 650 MG PO (22:58)
[2025-01-25 23:00] VITALS: BP 112/54
[2025-01-25 23:32] VITALS: BP 112/54
[2025-01-26] VITALS (10 sets, daily range): BP systolic 106–153; BP diastolic 47–68
[2025-01-26] MEDS: MAXIPIME 2000 MG IV ×3 (00:19→16:22)
[2025-01-26] MEDS: STERILE WATER FOR INJECTION 10 ML IV ×3 (00:20→16:21)
[2025-01-26 05:23] LABS: Blood Urea Nitrogen 12 mg/dl (9-20); Calcium 8.5 mg/dl (8.4-10.2); Carbon Dioxide 28 mmol/L (22-30); Chloride 103 mmol/L (98-107); Estimated Creatinine Clearance 114 ml/min; Glucose 129 mg/dl (70-99); Potassium 3.5 mmol/L (3.5-5.1); Sodium 136 mmol/L (135-145); eGFR > 60.00
[2025-01-26 05:41] LABS: Hematocrit 19.9 % (39.0-52.0); Hemoglobin 6.9 g/dL (13.0-18.0); Mean Corp Hgb Conc. 34.7 g/dL (33.0-37.0); Mean Corpuscular Volume 90.0 fL (80.0-94.0); Nucleated Red Blood Cells % 0 % (-); Platelet Count 6 10^3/uL (130-400); Red Cell Dist. Width 14.4 % (11.5-14.5)
--- NOTE | 2025-01-26 06:15 | W.PN.UPDATE ---
Update Note
Progress Note Update
This am hgb 6.9, hct 19.9, PLT - 6. One unit of blood and one unit of Platelets ordered
[2025-01-26] MEDS: VFEND 200 MG PO ×2 (08:27→19:50)
[2025-01-26] MEDS: ZOVIRAX 800 MG PO ×2 (08:27→19:50)
[2025-01-26] MEDS: LIDOCAINE 4% PATCH 1 PATCH TOPICAL (08:28)
[2025-01-26] MEDS: NON-FORMULARY ITEM 100 MG PO (08:28)
--- NOTE | 2025-01-26 11:36 | W.PN.ID1 ---
Date of Service
Date of Service: January 26, 2025
Today's Communication
Continue antibiotics.
Assessment / Plan
# Febrile neutropenia
#PNA - RUL
#AML
#Polymyalgia rheumatica
#Pancytopenia
#hypoNa; resolved
- CXR from 01/22/2025 with right upper lobe airspace opacity compatible with PNA
- currently on cefepime 2g q8h and azithro; will continue for now
- Continue Acyclovir ppx. Voriconazole ppx
- Blood cultures NGTD, urine culture negative
- Flu and COVID-negative
- Hep C ab neg
- Legionella Urine Legionella and strep pneumo negative.
- Continue to monitor for ongoing fever
- Await transfer to [facility].
����������������������������������������������������������
Chief Complaint
-: Fever
Subjective / Review of Systems
Patient seen and examined. Notes intermittent fevers. Little cough.
Vital Signs / Physical Exam
Vital Signs
Vital Signs
Temp Pulse Resp BP Pulse Ox
98.2 F 99 18 126/61 97
01/26/25 11:29 01/26/25 11:29 01/26/25 11:29 01/26/25 11:29 01/26/25 07:00
Physical Exam
Constitutional: No Acute Distress, Comfortable and Cachetic (Mild)
Eyes: Sclera Anicteric
Cardiovascular: Regular Rate and S1/S2
Pulmonary: Clear and Non Labored; Negative Rhonchi
Gastrointestinal: Soft and Non Tender
Neurological: Awake, Alert and Oriented
Psychological: Calm
Objective Data
Lab Data
Lab Results
01/26/25 04:17
01/26/25 04:17
Estimated Creat Clear 114 ml/min 01/26/25 04:17
Lactic Acid 0.8 mmol/L (0.7-2.0) 01/22/25 17:28
Total Bilirubin 2.4 mg/dl (0.2-1.3) H 01/23/25 04:34
AST 12 U/L (17-59) L 01/23/25 04:34
ALT 10 U/L (0-50) 01/23/25 04:34
Alkaline Phosphatase 55 U/L (38-126) 01/23/25 04:34
Most recent labs reviewed.
Micro Results:
01/22/25 18:27 Blood Culture - Preliminary
Blood/Venous No Growth in 72 hours- Final report to follow
01/22/25 18:27 Blood Culture - Preliminary
Blood/Venous No Growth in 72 hours- Final report to follow
01/22/25 17:28 Blood Culture - Preliminary
Blood/Venous No Growth in 72 hours- Final report to follow
01/22/25 23:26 MRSA Screen - Final
Nose No Methicillin Resistant Staphylococcus aureus isolated.
01/22/25 18:27 Urine Culture - Final
Urine NO GROWTH
01/23/25 00:22 Legionella Urinary Antigen - Final
Urine Negative for Legionella pneumophila Serogroup 1 antigen.
A negative result does not rule out the possiblity of
Legionella infection due to other serogroups or species of
Legionella. Clinical correlation is recommended.
Streptococcus pneumoniae Antigen (M - Final
Negative for Streptococcus pneumoniae antigen.
A negative result does not exclude infection with
Streptococcus pneumoniae. Clinical correlation is
recommended.
01/22/25 18:33 Influenza Types A & B (RADHA) - Final
Nasal Swab Negative for Influenza A & B, NAAT
Negative results must be combined with clinical observations
and patient history.
Nucleic Acid Amplification test (NAAT)performed on the
[employer] platform.
CR Chest - 2 Views 01/22/25: Right upper lobe airspace opacity, most compatible with pneumonia. Recommend radiographic follow-up to resolution.
Left PICC with the catheter tip at the cavoatrial junction.
No pleural effusion or pneumothorax. The cardiomediastinal silhouette is normal. Chronic mild degenerative changes of the spine
--- NOTE | 2025-01-26 12:47 | W.PN.HOSP.TC ---
Today's Communication/Plan
-
Continue current care. Awaiting transfer to [place].
Assessment / Plan
Assessment / Plan
Initial presentation:
69 y/o male past medical history of polymyalgia rheumatica, and acute myeloid leukemia who presented with fevers. Patient was at the infusion center on DOA and received 1 unit PRBCs. Upon returning home he spiked a fever to 101F. He contacted his
oncologist who recommended him go to the emergency department for evaluation. He has known pancytopenia and blood work revealed significant neutropenia. Patient's only complaint was some right sided musculoskeletal chest pain which has been ongoing
for the past month or so.
Chest X-Ray:
Right Upper Lobe Pneumonia in similar location to patient's right sided chest pain.
Diagnosis present prior to admission:
1. Primary hypertension
2. MDS (myelodysplastic syndrome)
3. Hypercholesteremia
4. PMR (polymyalgia rheumatica)
Hospital course by problem and A/P:
1. Likely sepsis POA with Right Upper Lobe Pneumonia/CAP
Complicated by Immunocompromised state with Pancytopenia and AML undergoing treatment
Complicated by Fever post transfusion could be neutropenic fever vs transfusion reaction
Continue cefepime, Azithromycin
Off IV vanco, MRSA screen negative
So far cultures negative, urinary Strep and Legionella Ags negative, COVID and Influenza negative
ID on board
Awaiting transfer to [place].
2. Pancytopenia - severe, and continues to be an active problem
Blood consent obtained and scanned into chart
transfused 1 unit PRBC , 1 unit platelet (today)
Hgb improved to 8.0 then 7.5, then 6.9 today, Platelet improved to 18 then 11 then 6 today
this is likely a complication of the AML.
AML
Hold Enasidenib and Venteoclex
Hold cefpodoxime prophylaxis while on cefepime
Continue acyclovir prophylaxis
Onc on board.
3. Mild hyponatremia, resolved
monitor
DVT proph: SCDs
Code Status: Full Code
Anticipated Discharge: 24 - 48 hours
Subjective/Interval History
-
Date of Service: January 26, 2025
No new complaints or symptoms. Getting PRBC and platelets.
Objective Data
-
Labs:
Laboratory Results
01/26/25
04:17
WBC 0.4 L*
Hgb 6.9 L*
Hct 19.9 L*
Plt Count 6 L* D
Sodium 136
Potassium 3.5
Chloride 103
Carbon Dioxide 28
BUN 12
Creatinine 0.6 L
Glucose 129 H
Calcium 8.5
Vital Signs:
Vital Signs
Temp Pulse Resp BP Pulse Ox
98.2 F 99 18 126/61 97
01/26/25 11:29 01/26/25 11:29 01/26/25 11:29 01/26/25 11:29 01/26/25 07:00
I&O
01/25/25 01/26/25 01/27/25
06:59 06:59 06:59
Intake Total 703 / 703 1200 / 1200
Balance 703 / 703 1200 / 1200
Review of Systems
-
History Source: Patient
All other systems: Reviewed and negative
Physical Exam
-
General: Well Developed, Well Nourished, No Apparent Distress, Comfortable and Conversant
HEENT: Normocephalic, Atraumatic and Moist Mucous Membranes
Respiratory: Clear to Auscultation
Cardiac: Regular Rhythm and S1/S2
GI: Soft, Nontender and Nondistended
Musculoskeletal: No Clubbing, No Cyanosis and No Edema
Skin: Warm and Dry
Neuro: Awake, Alert and Oriented
Psych: Calm
Data Reviewed
-
Labs: Labs Reviewed by me
[2025-01-26] MEDS: ZITHROMAX 500 MG PO (16:22)
[2025-01-26] MEDS: TYLENOL 650 MG PO ×2 (16:27→22:37)
[2025-01-26] MEDS: REMOVE LIDOCAINE PATCH 1 PATCH REMOVE (19:53)
[2025-01-27] VITALS (10 sets, daily range): BP systolic 107–147; BP diastolic 47–78
[2025-01-27] MEDS: STERILE WATER FOR INJECTION 10 ML IV ×5 (01:03→23:51)
[2025-01-27] MEDS: MAXIPIME 2000 MG IV ×2 (01:03→07:48)
--- NOTE | 2025-01-27 01:37 | PTCARENOTE ---
Pt ordered 1 unit of platelets during dayshift. Dayshift nurse unable to complete transfusion due to platelets not being available. Platelets became available on 01/26/2025 at 21:00. Nightshift RN completed pre-infusion protocol before starting
transfusion, which included a set of vitals. Once RN obtained 1 unit of platelets, RN began transfusion. RN started transfusion rate at 120 mL. RN stayed in room with Pt for 15 mins. After 15 mins were completed, another set of vitals were obtained.
Pt's vitals were stable, Pt assessed for transfusion reactions. Pt experienced no transfusion reactions. RN increased transfusion rate to 300 mL. Once transfusion was complete, RN obtained another set of vitals. All vitals were stable with the
exception of a temperature of 101.7F. RN administered 650 mg of PO Tylenol. After further assessed, RN noticed a small amount of blood coming from Pt's penis. RN contacted BENITO Miller about situation. BENITO advised RN to notify blood bank,
complete event report, and pack Pt with ice. BENITO also advised RN not to administer ibuprofen due to Pt's low platelet count. RN notified blood bank. Blood bank told RN to have JBOSS ARCHITECT order lab work for possible transfusion reaction. Blood work was
ordered by BENITO. RN brought empty platelet bag and tubing to blood bank. Event report completed. Blood work obtained by IV nurse. RN sent blood work to blood bank.
--- NOTE | 2025-01-27 03:07 | W.PN.UPDATE ---
Addendum entered and electronically signed by BENITO Miller 01/27/25 05:45:
*serial bladder scans for urine retention due to hematuria with clot formation.
Original Note:
Update Note
Progress Note Update
Earlier this shift patient was completing infusion of platelets and spiked temperature to 101.7 after tylenol given. Pt is severely pancytopenic. Ice packs applied. No dyspnea or chest pain noted. Other vital signs were stable. Followed transfusion
reaction protocol. He also had slight hematuria likely related more to the low platelet count. Will follow with serial bladder scans for urine retention due to retention. He likely needs pre-treatment with tylenol prior to infusion of blood products
in the future.
[2025-01-27 05:42] LABS: Hematocrit 20.0 % (39.0-52.0); Hemoglobin 7.0 g/dL (13.0-18.0); Mean Corp Hgb Conc. 35.0 g/dL (33.0-37.0); Mean Corpuscular Volume 89.7 fL (80.0-94.0); Nucleated Red Blood Cells % 0 % (-); Platelet Count 10 10^3/uL (130-400); Red Cell Dist. Width 14.6 % (11.5-14.5)
[2025-01-27 05:53] LABS: Blood Urea Nitrogen 14 mg/dl (9-20); Calcium 8.3 mg/dl (8.4-10.2); Carbon Dioxide 29 mmol/L (22-30); Chloride 102 mmol/L (98-107); Estimated Creatinine Clearance 114 ml/min; Glucose 119 mg/dl (70-99); Potassium 3.5 mmol/L (3.5-5.1); Sodium 135 mmol/L (135-145); eGFR > 60.00
--- NOTE | 2025-01-27 07:47 | W.PN.HOSP.TC ---
Today's Communication/Plan
-
Antibiotics broadened given continued fever episodes
Benadryl and Tylenol pretreatment in case fever related to transfusions? -- discussed this with hematology
Awaiting transfer to [facility]
Assessment / Plan
Assessment / Plan
Physical Exam
General: Well Developed, Well Nourished, No Apparent Distress, Comfortable and Conversant
HEENT: Normocephalic, Atraumatic and Moist Mucous Membranes
Respiratory: Clear to Auscultation
Cardiac: Regular Rhythm and S1/S2
GI: Soft, Nontender and Nondistended
Musculoskeletal: No Clubbing, No Cyanosis and No Edema
Skin: Warm and Dry
Neuro: Awake, Alert and Oriented
Psych: Calm
Assessment/Plan
Initial presentation:
69 y/o male past medical history of polymyalgia rheumatica, and acute myeloid leukemia who presented with fevers. Patient was at the infusion center on DOA and received 1 unit PRBCs. Upon returning home he spiked a fever to 101F. He contacted his
oncologist who recommended him go to the emergency department for evaluation. He has known pancytopenia and blood work revealed significant neutropenia. Patient's only complaint was some right sided musculoskeletal chest pain which has been ongoing
for the past month or so.
Chest X-Ray:
Right Upper Lobe Pneumonia in similar location to patient's right sided chest pain.
Diagnoses present prior to admission:
1. Primary hypertension
2. MDS (myelodysplastic syndrome)
3. Hypercholesteremia
4. PMR (polymyalgia rheumatica)
Likely sepsis POA with Right Upper Lobe Pneumonia/CAP
Complicated by Immunocompromised state with Pancytopenia and AML undergoing treatment
Complicated by Fever post transfusion could be neutropenic fever vs transfusion reaction
Antibiotics broadened to meropenem and Vancomycin (Cefepime stopped)
Given fever persists, checked CT Chest 01/27/25: small parapneumonic effusion and pneumonia
Fungal infection? Patient was not on fungal prophylaxis outpatient
Off IV vanco, MRSA screen negative
So far cultures negative, urinary Strep and Legionella Ags negative, COVID and Influenza negative
ID on board
Awaiting transfer to [place].
Neutropenic fever
Recurrent Fevers
-At least partly related to blood products transfusion?
-Provided pre-treament with Benadryl and Tylenol on 01/27/25 (no need for steroids, and also trying to avoid steroids in the setting of pneumonia and significant immunosuppression)
Pancytopenia - severe, and continues to be an active problem
Blood consent obtained and scanned into chart
Continue PRBC and platelets transfusion
this is likely a complication of the AML.
AML
Continue Enasidenib, but hold Venteoclex
Hold cefpodoxime prophylaxis while on the above antibiotics
Continue acyclovir prophylaxis
Oncology on board.
Mild hyponatremia, resolved
monitor
DVT proph: SCDs
Code Status: Full Code
Anticipated Discharge: > 48 hours
Subjective/Interval History
-
Date of Service: January 27, 2025
Patient was seen and examined. He overall has not been feeling good, no new symptoms or complaints today.
Objective Data
-
Labs:
Laboratory Results
01/27/25
05:05
WBC 0.3 L*
Hgb 7.0 L
Hct 20.0 L*
Plt Count 10 L* D
Sodium 135
Potassium 3.5
Chloride 102
Carbon Dioxide 29
BUN 14
Creatinine 0.6 L
Glucose 119 H
Calcium 8.3 L
Total Bilirubin 2.1 H
Vital Signs:
Vital Signs
Temp Pulse Resp BP Pulse Ox
97.5 F 78 16 132/78 97
01/27/25 07:39 01/27/25 07:39 01/27/25 07:39 01/27/25 07:39 01/27/25 07:39
I&O
01/26/25 01/27/25 01/28/25
06:59 06:59 06:59
Intake Total 1200 / 1200 1085 / 1085
Balance 1200 / 1200 1085 / 1085
[2025-01-27] MEDS: ZOVIRAX 800 MG PO ×2 (07:50→23:05)
[2025-01-27] MEDS: LIDOCAINE 4% PATCH 1 PATCH TOPICAL (07:51)
[2025-01-27] MEDS: VFEND 200 MG PO ×2 (07:51→23:05)
--- NOTE | 2025-01-27 07:51 | W.PN.ONC2 ---
Today's Communication / Plan
-
increase in fever curve over weekend -reculture & cxr ordered -continue to monitor for new sxs of infection -discussed with ID
awaiting [facility] transfer
Impression
Impression
AML s/p BMBx 01/20, prelim flow with <10% blasts
pancytopenia
neutropenic fever
elevated Tbili
hyponatremia
Plan
Plan
For transfer to [place] - awiating bed
Continue anti-infectives
Monitor CBC daily
transfuse Hgb <7 or as needed for sxs anemia
transfuse platelets <20 with NF <50 prn bleeding
Needs CMV neg and irradiated products
avoid NSAIDs, antiplatelet, and anticoagulation with platelet count <50,000
neutropenic precautions
this cycle of Venclexta completed 01/19
continue enasidenib 100mg daily
Subjective/Objective
Subjective
worsening weakness
denies new cough, sob, sinus congestion, sore throat, dysuria, diarrhea
Tmax 101.7 yesterday
Vital Signs:
Vital Signs
Temp Pulse Resp BP Pulse Ox
97.5 F 78 16 132/78 97
01/27/25 07:39 01/27/25 07:39 01/27/25 07:39 01/27/25 07:39 01/27/25 07:39
Lab Results:
Laboratory Data
WBC 0.3 10^3/uL (4.8-10.8) L* 01/27/25 05:05
Hgb 7.0 g/dL (13.0-18.0) L 01/27/25 05:05
Plt Count 10 10^3/uL (130-400) L* D 01/27/25 05:05
eGFR > 60.00 01/27/25 05:05
Physical Exam
HEENT: Moist Mucous Membranes; No Jaundice
Pulmonary: Other (unlabored)
GI: Soft
Extremities: Pulses Present
[2025-01-27] MEDS: NON-FORMULARY ITEM 1 MG PO (09:11)
--- NOTE | 2025-01-27 10:14 | W.PN.ID1 ---
Date of Service
Date of Service: January 27, 2025
Today's Communication
CT chest.
Broaden abx.
See below,
Assessment / Plan
# Prolonged neutropenia and pancytopenia due to AML
# Febrile neutropenia. Fever recurred and persists
# RUL opacity
# Right upper chest wall pain/induration
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
# LUE PICC -present on admission
-Ucx neg
-Blood cx x2 neg to date
- Urine legionella Ag and strep pneumo ag neg (low sensitivity tests)
- Recurrence of fever despite cefepime/azithromycin (day 6).
Today's CXR RUL mass/opacity has increased compared to 01/22/25, personally reviewed.
RU chest wall pesistently tender with induration
Ordered CT chest with IV contrast to assess chest wall and lungs
Follow repeat blood cx's.
Check sputum cx if able to produce
- Broaden cefepime to meropenem and Vancomycin for now.
- Fungal infection still in differential diagnosis as pt was not on outpt antifungal ppx.
- Follow temps
- Continue Acyclovir ppx.
- Hem/onc started Voriconazole 200mg po bid ppx 01/23.
- Awaiting transfer to [facility].
Chief Complaint
-: Fever
Subjective / Review of Systems
Gross hematuria resolved.
Cough better, minimal to no sputum.
Left chest wall pain stable.
Vital Signs / Physical Exam
Vital Signs
Vital Signs
Temp Pulse Resp BP Pulse Ox
97.5 F 78 16 132/78 97
01/27/25 07:39 01/27/25 07:39 01/27/25 07:39 01/27/25 07:39 01/27/25 07:39
Selected Entries
01/26/25
15:00 01/26/25
22:54
Temp 102.9 F H 101.7 F H
Physical Exam
Constitutional: No Acute Distress
Head: Other (No frontal or maxillary sinus tenderness)
Eyes: No Conjunctival Hemorrhage and Sclera Anicteric
Oropharyngeal: Negative Ulcers
Cardiovascular: Regular Rate and S1/S2
Pulmonary: Clear
Musculoskeletal: Other (Right upper chest wall + induration, mild tenderness; no erythema)
Neurological: AO x 3
Lines: PICC (LUE - no erythema)
Objective Data
Lab Data
Lab Results
01/27/25 05:05
01/27/25 05:05
Estimated Creat Clear 114 ml/min 01/27/25 05:05
Lactic Acid 0.8 mmol/L (0.7-2.0) 01/22/25 17:28
Total Bilirubin 2.1 mg/dl (0.2-1.3) H 01/27/25 05:05
AST 12 U/L (17-59) L 01/23/25 04:34
ALT 10 U/L (0-50) 01/23/25 04:34
Alkaline Phosphatase 55 U/L (38-126) 01/23/25 04:34
Most recent labs reviewed.
Micro Results:
01/27/25 09:30 Urine Culture - Pending
Urine
01/27/25 09:21 Blood Culture - Pending
Blood/Venous
01/27/25 08:47 Blood Culture - Pending
Blood/Venous
01/22/25 18:27 Blood Culture - Preliminary
Blood/Venous No Growth in 4 days- Final report to follow
01/22/25 18:27 Blood Culture - Preliminary
Blood/Venous No Growth in 4 days- Final report to follow
01/22/25 17:28 Blood Culture - Preliminary
Blood/Venous No Growth in 4 days- Final report to follow
01/22/25 23:26 MRSA Screen - Final
Nose No Methicillin Resistant Staphylococcus aureus isolated.
01/22/25 18:27 Urine Culture - Final
Urine NO GROWTH
01/23/25 00:22 Legionella Urinary Antigen - Final
Urine Negative for Legionella pneumophila Serogroup 1 antigen.
A negative result does not rule out the possiblity of
Legionella infection due to other serogroups or species of
Legionella. Clinical correlation is recommended.
Streptococcus pneumoniae Antigen (M - Final
Negative for Streptococcus pneumoniae antigen.
A negative result does not exclude infection with
Streptococcus pneumoniae. Clinical correlation is
recommended.
01/22/25 18:33 Influenza Types A & B (RADHA) - Final
Nasal Swab Negative for Influenza A & B, NAAT
Negative results must be combined with clinical observations
and patient history.
Nucleic Acid Amplification test (NAAT)performed on the
[employer] platform.
CR Chest - 2 Views 01/22/25: Right upper lobe airspace opacity, most compatible with pneumonia. Recommend radiographic follow-up to resolution.
Left PICC with the catheter tip at the cavoatrial junction.
No pleural effusion or pneumothorax. The cardiomediastinal silhouette is normal. Chronic mild degenerative changes of the spine
Care Review
Plan reviewed with: Physician (Dr. Gillis) and Other Provider (Oncology BENITO Hardin)
--- NOTE | 2025-01-27 10:59 | PHA.VAN.FU ---
Vancomycin Assessment / Plan
- Assessment
Renal Function: Stable
WBC's are: Trending Down (WBC 0.5-->0.4-->0.3)
Neutropenia: 0
In the past 24 hrs, patient has been: Afebrile (Tmax 101.7F)
Concomitant Antimicrobials: Meropenem, Voriconazole, Azithromycin, Acyclovir
- Dosing Plan
Adjust Regimen to: Vancomycin 1500mg now and then Restart vancomycin 1500mg IV Q12h at 1800
New Regimen Predicts: AUC (464), Peak (27.6), Trough (12.8)
Pt received vancomycin 1250mg IV Q12h for 4 days (01/22-01/25).
Levels obtained provided calculated of AUC 373.
Noted peak was drawn late.
- Monitoring Plan
No level(s) ordered at this time: Consider levels in the next few days.
- Follow Up
Pharmacy will continue to follow.
Vancomycin Follow UP
- -
Patient Age: 69
Patient Sex: Male
Vancomycin Day #: 1
Indication: Pulmonary/Respiratory
Requesting Provider: Chidi Cherry
Pertinent Antimicrobial Allergies:
Levofloxacin w. unknown reaction.
Height / Weight:
Height 6 ft 1 in
Actual Weight 70.579 kg
Pertinent Past Medical History: History of polymyalgia rheumatica, and acute myeloid leukemia
- Vital Signs / Lab Results
Temp Pulse Resp BP Pulse Ox
97.5 F 78 16 132/78 97
01/27/25 07:39 01/27/25 07:39 01/27/25 07:39 01/27/25 07:39 01/27/25 07:39
Lab Results - Hematology
01/25/25 01/26/25 01/27/25
05:02 04:17 05:05
WBC 0.5 L* 0.4 L* 0.3 L*
Lab Results - Chemistry
01/25/25 01/26/25 01/27/25
05:02 04:17 05:05
BUN 10 12 14
Creatinine 0.6 L 0.6 L 0.6 L
Estimated Creat Clear 114 114 114
Microbiology Results
01/22/25 18:27 Blood Culture - Preliminary
Blood/Venous No Growth in 4 days- Final report to follow
01/22/25 18:27 Blood Culture - Preliminary
Blood/Venous No Growth in 4 days- Final report to follow
01/22/25 17:28 Blood Culture - Preliminary
Blood/Venous No Growth in 4 days- Final report to follow
Therapeutic Drug Monitoring
Vancomycin Peak 17.5 ug/ml (18-26) L 01/24/25 21:20
Vancomycin Trough 10.2 ug/ml (5-20) 01/25/25 05:02
--- NOTE | 2025-01-27 12:17 | CM ---
chart reviewed
Awaiting transfer to [facility].
Pt to go via BLS ambulance
Dr Elena is receiving MD
[place] transfer line # [phone]
PLAN: Transfer to [facility] once bed available
[2025-01-27] MEDS: MERREM 500 MG IV ×3 (12:26→23:50)
[2025-01-27] MEDS: VANCOCIN 530 MG IV ×2 (12:28→17:16)
[2025-01-27] MEDS: BENADRYL 25 MG PO (12:34)
[2025-01-27] MEDS: TYLENOL 650 MG PO ×2 (12:34→20:54)
[2025-01-27] MEDS: ZITHROMAX 500 MG PO (17:16)
--- NOTE | 2025-01-27 18:15 | PTCARENOTE ---
Pt received one unit of PRBC and platelets as ordered. Pre-medicated with Tylenol and Benadryl as seen in JUL. 20 minutes into platelet transfusion, RN noticed pt with hand tremors. Vitals stable and pt with no complaints. Both MD and retail representative
on board made aware immediately with no new orders. Plan of care continuing, pt with no current complaints, will continue to monitor.
--- NOTE | 2025-01-27 20:46 | W.PN.UPDATE ---
Update Note
Progress Note Update
TT'd to see patient s/p fall. Per RN, patient was in bed, RN heard crash in room, found patient sitting on floor against radiator. Patient hit his head on radiator, received laceration. Patient also had laceration on his left calf from fall.
Patient examined, states he does have some head pain where laceration is located. Patient denies any new pain, anywhere else from fall. Patient does have laceration middle forehead and laceration left calf. Wounds cleaned and dressings in place.
Ordered Stat Head CT, No acute intracranial abnormality noted. Neuro checks, Q4H. Repeat Head CT ordered. Bed alarm in place.
[2025-01-27] MEDS: REMOVE LIDOCAINE PATCH 1 PATCH REMOVE (23:04)
[2025-01-28] VITALS (9 sets, daily range): BP systolic 108–137; BP diastolic 48–62
--- NOTE | 2025-01-28 00:46 | PTCARENOTE ---
Alfonso Mcconnell RN was in room 329-01 completing a new admission to the floor. RN heard a loud crash. RN ran out of room 329-01 to assess situation. Yoana Dhaliwal RN was in room 331-01 with Pt on the ground at the bedside. Pt suffered a laceration to
the forehead and a laceration to the back of his right calf. Pt stated he felt fine otherwise. Alfonso Mcconnell RN contacted Yue OLIVER about situation. Alfonso Mcconnell RN and Yoli Dhaliwal RN placed Pt back in bed. Vitals were obtained. VSS with
the except of a fever of 101.8F. [employer] MARKETING MANAGER arrived to unit. [employer] MARKETING MANAGER further assessed patient. [employer]COMM[employer] MARKETING MANAGER ordered STAT CT of head. Alfonso Mcconnell RN transferred Pt to CT lab. CT of head was obtained. Pt transferred back to room 331.
[2025-01-28] MEDS: TYLENOL 650 MG PO ×3 (04:11→18:12)
[2025-01-28 05:49] LABS: Fibrinogen 562 MG/DL (199-459)
[2025-01-28] MEDS: STERILE WATER FOR INJECTION 10 ML IV (06:00)
[2025-01-28] MEDS: MERREM 500 MG IV (06:00)
[2025-01-28 06:04] LABS: ALT (SGPT) 18 U/L (0-50); AST (SGOT) 20 U/L (17-59); Albumin 2.6 g/dl (3.5-5.0); Alkaline Phosphatase 63 U/L (38-126); Blood Urea Nitrogen 13 mg/dl (9-20); Calcium 7.6 mg/dl (8.4-10.2); Carbon Dioxide 28 mmol/L (22-30); Chloride 102 mmol/L (98-107); Estimated Creatinine Clearance 98 ml/min; Glucose 118 mg/dl (70-99); Potassium 3.1 mmol/L (3.5-5.1); Sodium 134 mmol/L (135-145); Total Protein 4.8 g/dl (6.3-8.2); eGFR > 60.00
[2025-01-28] MEDS: VANCOCIN 530 MG IV ×2 (06:04→18:41)
--- NOTE | 2025-01-28 08:26 | W.PN.HOSP.TC ---
Today's Communication/Plan
-
Discharge today to [facility]
Assessment / Plan
Assessment / Plan
Physical Exam
General: Well Developed, Well Nourished, No Apparent Distress, Comfortable and Conversant
HEENT: Normocephalic, Atraumatic and Moist Mucous Membranes
Respiratory: Clear to Auscultation
Cardiac: Regular Rhythm and S1/S2
GI: Soft, Nontender and Nondistended
Musculoskeletal: No Clubbing, No Cyanosis and No Edema
Skin: Warm and Dry. Lacerations on head.
Neuro: Awake, Alert and Oriented
Psych: Calm
Assessment/Plan
Initial presentation:
69 y/o male past medical history of polymyalgia rheumatica, and acute myeloid leukemia who presented with fevers. Patient was at the infusion center on [facility] and received 1 unit PRBCs. Upon returning home he spiked a fever to 101F. He contacted his
oncologist who recommended him go to the emergency department for evaluation. He has known pancytopenia and blood work revealed significant neutropenia. Patient's only complaint was some right sided musculoskeletal chest pain which has been ongoing
for the past month or so.
Chest X-Ray:
Right Upper Lobe Pneumonia in similar location to patient's right sided chest pain.
Diagnoses present prior to admission:
1. Primary hypertension
2. MDS (myelodysplastic syndrome)
3. Hypercholesteremia
4. PMR (polymyalgia rheumatica)
Right Upper Lobe Pneumonia with large consolidation, ground glass opacity
Right upper chest wall pain/induration - likely from underlying RUL opacity
Recent root canal for tooth infection 3 weeks ago, per pt
Complicated by Immunocompromised state with Pancytopenia and AML undergoing treatment
Complicated by Fever post transfusion could be neutropenic fever vs transfusion reaction
Antibiotics broadened to meropenem and Vancomycin (Cefepime stopped)
Given fever persists, checked CT Chest 01/27/25: small parapneumonic effusion and pneumonia
Continue meropenem 2g IV q8 (d2), Vancomycin (d2)
If fever persists, consider adding Micafungin.
Fungal infection? Patient was not on fungal prophylaxis outpatient
So far cultures negative, urinary Strep and Legionella Ags negative, COVID and Influenza negative
ID on board
LUE PICC -present on admission
Neutropenic fever
Recurrent Fevers
-At least partly related to blood products transfusion?
-Provided pre-treament with Benadryl and Tylenol on 01/27/25 (no need for steroids, and also trying to avoid steroids in the setting of pneumonia and significant immunosuppression)
-Prophylactic Voriconazole was started on 01/24/25, later low grade temp, then daily fever -- therefore, STOP Voriconazole, in case the fever is a drug fever.
Pancytopenia - prolonged neutropenia and pancytopenia due to AML
-Follow neutropenic precautions
-Blood consent obtained and scanned into chart
-transfuse Hgb <7 or as needed for symptoms of anemia
-transfuse platelets <20 with neutropenic fever <50 prn bleeding -- he needs CMV neg and irradiated products
-avoid NSAIDs, antiplatelet, and anticoagulation with platelet count <50,000
AML status post BMBx 01/20/25, prelim flow with <10% blasts
-Continue Enasidenib 100 mg daily, this cycle of Venclexta completed 01/19/25
-Hold cefpodoxime prophylaxis while on the above antibiotics
-Continue acyclovir prophylaxis
-Oncology on board.
Mechanical Fall Overnight 01/27/25 to 01/28/25
Head Lacerations from Fall
Left Calf Lacerations from Fall
-Patient was at the edge of the bed trying to urinate, and fell forward and hit the radiator
-Had scalp lacerations, wound care consulted
-Neurologically okay, CT Head was done twice with no bleeding
Mild hyponatremia, resolved
monitor
DVT proph: SCDs
Code Status: Full Code
Today, I spoke extensively with other specialists involved in patient's case, as well as Dr. Noreen Elena, [facility] oncologist, patient will be transferred to [facility] today.
More than 30 minutes spent in discharge including
Final examination of the patient
Summarizing hospital stay
Instructions for continuing care to all relevant caregivers
Preparation of discharge records, prescriptions, and referral forms
Total time spent (in minutes): 55
Anticipated Discharge: Today
Subjective/Interval History
-
Date of Service: January 28, 2025
Patient was seen and examined. He reported a mechanical fall overnight as he was trying to urinate at the side of his bed.
Objective Data
-
Labs:
Laboratory Results
01/28/25
05:25
WBC Pending
Hgb Pending
Hct Pending
Plt Count Pending
Sodium 134 L
Potassium 3.1 L
Chloride 102
Carbon Dioxide 28
BUN 13
Creatinine 0.7
Glucose 118 H
Calcium 7.6 L
Total Bilirubin 1.8 H
AST 20
ALT 18
Alkaline Phosphatase 63
Vital Signs:
Vital Signs
Temp Pulse Resp BP Pulse Ox
98.1 F 82 20 116/50 96
01/28/25 07:30 01/28/25 07:30 01/28/25 07:30 01/28/25 07:30 01/28/25 07:30
I&O
01/27/25 01/28/25 01/29/25
06:59 06:59 06:59
Intake Total 1085 / 1085 975 / 975
Output Total 1000 / 1000
Balance 1085 / 1085 - / 25
[2025-01-28] MEDS: NON-FORMULARY ITEM 100 MG PO (08:31)
[2025-01-28] MEDS: ZOVIRAX 800 MG PO (08:31)
[2025-01-28] MEDS: VFEND 200 MG PO (08:32)
[2025-01-28] MEDS: LIDOCAINE 4% PATCH 1 PATCH TOPICAL (08:32)
--- NOTE | 2025-01-28 09:13 | PHA.VAN.FU ---
Vancomycin Assessment / Plan
- Assessment
Renal Function: Stable
WBC's are: Stable
Neutropenia: WBC 0.3, no manual diff
In the past 24 hrs, patient has been: Febrile (Tmax 101.8F)
Concomitant Antimicrobials: Azithromycin, Meropenem, Voriconazole
- Monitoring Plan
No level(s) ordered at this time: Awaiting steady state
Monitoring Comments: Doses 1 and 2 close together, steady state anticipated evening of 01/29
- Follow Up
Pharmacy will continue to follow.
Vancomycin Follow UP
- -
Patient Age: 69
Patient Sex: Male
Vancomycin Day #: 2
Indication: Pulmonary/Respiratory
Requesting Provider: Chidi Cherry
Pertinent Antimicrobial Allergies:
Levofloxacin w. unknown reaction.
Height / Weight:
Height 6 ft 1 in
Actual Weight 70.579 kg
Pertinent Past Medical History: History of polymyalgia rheumatica, and acute myeloid leukemia
- Vital Signs / Lab Results
Temp Pulse Resp BP Pulse Ox
98.1 F 82 20 116/50 96
01/28/25 07:30 01/28/25 07:30 01/28/25 07:30 01/28/25 07:30 01/28/25 07:30
Lab Results - Hematology
01/26/25 01/27/25
04:17 05:05
WBC 0.4 L* 0.3 L*
Lab Results - Chemistry
01/26/25 01/27/25 01/28/25
04:17 05:05 05:25
BUN 12 14 13
Creatinine 0.6 L 0.6 L 0.7
Estimated Creat Clear 114 114 98
Albumin 2.6 L
Microbiology Results
01/27/25 08:47 Blood Culture - Preliminary
Blood/Venous No Growth in 24 hours- Final report to follow
01/22/25 18:27 Blood Culture - Final
Blood/Venous No Growth - Final Report
01/22/25 18:27 Blood Culture - Final
Blood/Venous No Growth - Final Report
01/22/25 17:28 Blood Culture - Final
Blood/Venous No Growth - Final Report
Therapeutic Drug Monitoring
Vancomycin Peak 17.5 ug/ml (18-26) L 01/24/25 21:20
Vancomycin Trough 10.2 ug/ml (5-20) 01/25/25 05:02
[2025-01-28] MEDS: KCL 40 MEQ PO (09:36)
--- NOTE | 2025-01-28 10:27 | W.PN.ONC ---
Today's Communication / Plan
-
For transfer to [facility] - awaiting bed. I reached out to his doc at [facility] this morning, asked her to advocate for his transfer expeditiously
Continue anti-infectives
Monitor CBC daily - still pending this am
OOB w/ assistance
transfuse Hgb <7 or as needed for sxs anemia
transfuse platelets <20 with NF <50 prn bleeding
Needs CMV neg and irradiated products
avoid NSAIDs, antiplatelet, and anticoagulation with platelet count <50,000
neutropenic precautions
this cycle of Venclexta completed 01/19
continue enasidenib 100mg daily
Impression
Impression
AML s/p BMBx 01/20, prelim flow with <10% blasts
pancytopenia
neutropenic fever
elevated Tbili
hyponatremia
weakness, falls
Plan
Plan
For transfer to [facility] bed. I reached out to his doc at [facility] this morning, asked her to advocate for his transfer expeditiously
Continue anti-infectives
Monitor CBC daily - still pending this am
OOB w/ assistance
transfuse Hgb <7 or as needed for sxs anemia
transfuse platelets <20 with NF <50 prn bleeding
Needs CMV neg and irradiated products
avoid NSAIDs, antiplatelet, and anticoagulation with platelet count <50,000
neutropenic precautions
this cycle of Venclexta completed 01/19
continue enasidenib 100mg daily
Subjective/Objective
Subjective/Objective
had a fall overnight, was leaning OOB to use urinal, lost balance and hit his head on radiator, with scalp laceration
Feeling weak overall, poor appetite
Vital Signs:
Vital Signs
Temp Pulse Resp BP Pulse Ox
98.1 F 82 20 116/50 96
01/28/25 07:30 01/28/25 07:30 01/28/25 07:30 01/28/25 07:30 01/28/25 07:30
Lab Results:
Laboratory Data
WBC 0.3 10^3/uL (4.8-10.8) L* 01/27/25 05:05
Hgb 7.0 g/dL (13.0-18.0) L 01/27/25 05:05
Plt Count 10 10^3/uL (130-400) L* D 01/27/25 05:05
eGFR > 60.00 01/28/25 05:25
--- NOTE | 2025-01-28 10:36 | W.PN.ID1 ---
Addendum entered and electronically signed by Tamiko Rodrigez MD 01/28/25 13:07:
Patient with fever 101.
Reviewed drug list. Pt afebrile 01/22, 01/23. Prophylactic Voriconazole started 01/24, later low grade temp, then daily fever.
DC Voriconazole, in case of drug fever.
Original Note:
Date of Service
Date of Service: January 28, 2025
Today's Communication
Continue meropenem and Vancomycin.
Assessment / Plan
# Prolonged neutropenia and pancytopenia due to AML
# Febrile neutropenia. Fever recurred and persists
# RUL PNA with large consolidation, ground glass opacity
# Right upper chest wall pain/induration - likely from underlying RUL opacity
# Of note, recent root canal for tooth infection 3 weeks ago, per pt
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
# LUE PICC -present on admission
-Ucx neg
-Blood cx x2 neg to date
- Urine legionella Ag and strep pneumo ag neg (low sensitivity tests)
- Recurrence of fever, worsening PNA (despite cefepime/azithromycin (day 6))
repeat blood cx's neg to date
repeat Ucx neg
Check sputum cx if able to produce
- s/p 5d cefepime/azithromycin
- Continue meropenem 2g IV q8 (d2), Vancomycin (d2)
- If fever persists, consider adding Micafungin.
- Fungal infection still in differential diagnosis as pt was not on outpt antifungal ppx.
- Follow temps
- Continue Acyclovir ppx.
- Hem/onc started Voriconazole 200mg po bid ppx 01/23.
- Awaiting transfer to [facility].
Chief Complaint
-: Fever
Subjective / Review of Systems
Events noted. pt reports he was using the urinal off the side of the bed last night when he lost his balance and fell hitting against the radiator. Head CT neg bleed. He is OK now.
Cough and chest wall pain stable.
Vital Signs / Physical Exam
Vital Signs
Vital Signs
Temp Pulse Resp BP Pulse Ox
98.1 F 82 20 116/50 96
01/28/25 07:30 01/28/25 07:30 01/28/25 07:30 01/28/25 07:30 01/28/25 07:30
Selected Entries
01/27/25
20:36
Temp 101.8 F H
Physical Exam
Constitutional: No Acute Distress and Comfortable
Head: Other (No frontal or maxillary sinus tenderness)
Eyes: No Conjunctival Hemorrhage and Sclera Anicteric
Cardiovascular: Regular Rate and S1/S2
Pulmonary: Clear
Gastrointestinal: Soft, Non Tender, Non Distended and Normal Bowel Sounds
Genito-Urinary: Negative CVA Tenderness
Extremities: Negative Edema
Musculoskeletal: Other (Right upper chest wall edema, no erytehma/warmth.); Negative Spinal Tenderness
Wound: Other (Abrasion on forehead and left calf. )
Neurological: AO x 3
Lines: PICC (LUE no erythema)
Objective Data
Lab Data
Lab Results
01/28/25 05:25
Estimated Creat Clear 98 ml/min 01/28/25 05:25
Lactic Acid 0.8 mmol/L (0.7-2.0) 01/22/25 17:28
Total Bilirubin 1.8 mg/dl (0.2-1.3) H 01/28/25 05:25
AST 20 U/L (17-59) 01/28/25 05:25
ALT 18 U/L (0-50) 01/28/25 05:25
Alkaline Phosphatase 63 U/L (38-126) 01/28/25 05:25
Most recent labs reviewed.
Micro Results:
01/27/25 09:30 Urine Culture - Final
Urine NO GROWTH
01/27/25 09:21 Blood Culture - Preliminary
Blood/Venous No Growth in 24 hours- Final report to follow
01/27/25 08:47 Blood Culture - Preliminary
Blood/Venous No Growth in 24 hours- Final report to follow
01/22/25 18:27 Blood Culture - Final
Blood/Venous No Growth - Final Report
01/22/25 18:27 Blood Culture - Final
Blood/Venous No Growth - Final Report
01/22/25 17:28 Blood Culture - Final
Blood/Venous No Growth - Final Report
01/22/25 23:26 MRSA Screen - Final
Nose No Methicillin Resistant Staphylococcus aureus isolated.
01/22/25 18:27 Urine Culture - Final
Urine NO GROWTH
01/23/25 00:22 Legionella Urinary Antigen - Final
Urine Negative for Legionella pneumophila Serogroup 1 antigen.
A negative result does not rule out the possiblity of
Legionella infection due to other serogroups or species of
Legionella. Clinical correlation is recommended.
Streptococcus pneumoniae Antigen (M - Final
Negative for Streptococcus pneumoniae antigen.
A negative result does not exclude infection with
Streptococcus pneumoniae. Clinical correlation is
recommended.
01/22/25 18:33 Influenza Types A & B (RADHA) - Final
Nasal Swab Negative for Influenza A & B, NAAT
Negative results must be combined with clinical observations
and patient history.
Nucleic Acid Amplification test (NAAT)performed on the
[employer] platform.
01/27/25 CT chest with IV contrast: There is a consolidative opacity with surrounding groundglass opacities within the medial right upper lobe. This extends minimally into the superior right lower lobe. There is an associated small right-sided
pleural effusion.
01/22/25 CR Chest - 2 Views : Right upper lobe airspace opacity, most compatible with pneumonia.
Care Review
Plan reviewed with: Physician (Dr. Gillis)
[2025-01-28 10:54] LABS: Hematocrit 18.2 % (39.0-52.0); Hemoglobin 6.4 g/dL (13.0-18.0); Mean Corp Hgb Conc. 35.2 g/dL (33.0-37.0); Mean Corpuscular Volume 88.3 fL (80.0-94.0); Platelet Count 17 10^3/uL (130-400); Red Cell Dist. Width 15.4 % (11.5-14.5)
--- NOTE | 2025-01-28 12:47 | WOUNDNOTE ---
[facility] RN NOTE: Reviewed chart and met with patient. Patient had a fall last night and now has a 2x2.x5 parital thickness wound to forehead. Local wound care given after cleaning with saline. Legs assessed with RNBee and no wound was noted on
calves. Sacrum is intact and patient turns well in bed. Heels off-loaded with pillows under calves. Bed alarm on. Confirmed orders and updated careplan. Plan is for transfer to [place].
--- NOTE | 2025-01-28 13:10 | CON.PUL ---
Consultation
Consultation Request
Date/Time Consultation Requested: 01/28/2025
Date/Time Consultation Performed: 01/28/2025
Requesting Provider: Dr. El
Performing Provider: Dr. Irwin Verma
Reason for Consultation: Pneumonia/neutropenia
Medical History
-
Chief Complaint: Fever/chest pain
History of Present Illness:
69-year-old man with past medical history of PMR, acute myeloid leukemia who presented to the emergency room on 01/23/2024 complaining of fevers.
The day of admission patient did receive 1 unit of packed red blood cells.
He reported febrile up to 101 �F at home.
Patient had chronic neutropenia/thrombocytopenia in the setting of leukemia.
Complaint of right sided musculoskeletal pain.
Chest x-ray showed large right upper lobe infiltrate.
Persistently febrile despite antibiotics-antibiotics has been broadened.
In addition, he was recently placed on oral antifungal empirically.
We were consulted for evaluation of his pulmonary infiltrates.
Past Medical History
Past Medical History: Other ( See assessment and plan)
Social History
Tobacco: Former Smoker (Quit 40 to 50 years ago)
Alcohol: None
Drug: None
Living: With Family
Family History
Family History: Reviewed & Not Pertinent
Allergies / Home Medications
Allergies
Allergy/AdvReac Type Severity Reaction Status Date / Time
levofloxacin (From Levaquin) Allergy Achilles Verified 01/24/25 10:05
tendinitis
Home Medications
�Medication �Instructions �Recorded �Confirmed �Last Taken �Type
acyclovir 800 mg tablet 800 mg PO BID Infection 10/14/24 01/22/25 01/22/25 History
venetoclax 100 mg tablet 400 mg PO DAILY Cancer 10/14/24 01/22/25 01/19/25 History
cefpodoxime 200 mg tablet 200 mg PO BID Infection 10/15/24 01/22/25 01/22/25 History
enasidenib 100 mg tablet 100 mg PO HS Autoimmune Disorder 12/04/24 01/22/25 01/21/25 History
azacitidine 100 mg solution for 148 mg IV .7DAYS Cancer 12/23/24 01/22/25 01/08/25 History
injection (Vidaza)
Review of Systems
-
History Source: Patient
All other systems: Negative unless noted
Vitals / Labs / Diagnostic Testing
Vital Signs
Temp Pulse Resp BP Pulse Ox
101 F H 90 20 127/61 96
01/28/25 12:49 01/28/25 12:49 01/28/25 07:30 01/28/25 12:49 01/28/25 07:30
Lab Data
01/28/25 05:25
01/28/25 05:25
Microbiology
01/27/25 09:30 Urine Urine Culture - Final
NO GROWTH
01/27/25 09:21 Blood/Venous Blood Culture - Preliminary
No Growth in 24 hours- Final report to follow
01/27/25 08:47 Blood/Venous Blood Culture - Preliminary
No Growth in 24 hours- Final report to follow
01/22/25 18:27 Blood/Venous Blood Culture - Final
No Growth - Final Report
01/22/25 18:27 Blood/Venous Blood Culture - Final
No Growth - Final Report
01/22/25 17:28 Blood/Venous Blood Culture - Final
No Growth - Final Report
Diagnostic Testing:
Physical Exam
-
HEENT: Normocephalic
Cardiovascular: S1/S2
Respiratory: Non-Labored Respirations
GI: Soft and Non Distended
Neurology: Awake and AO x 3
Skin: Warm
General: Comfortable
Assessment
-
69-year-old man with history of acute myelogenous leukemia, pancytopenia admitted with chest pain, fevers. Found to have right upper lobe infiltrate. Persistent fevers despite antibiotics.
Neutropenic fever
Right upper lobe pneumonia/small right pleural effusion
CT chest 01/27/2025 reviewed, right upper lobe consolidation with surrounding ground glass/small right pleural effusion. No mediastinal lymph nodes. No pericardial effusion.
Pancytopenia
Conditions present prior admission:
Acute myeloid leukemia
Polymyalgia rheumatica
Assessment and plan:
Large pneumonia of the right upper lobe in the setting of pancytopenia/neutropenia/immunosuppression acute and AML. Right upper lobe lobe infiltrate
Progressed since admission despite antibiotics.
On broad-spectrum antibiotics: Meropenem/vancomycin
Continues to be febrile -->remains hemodynamically stable - continue with close monitoring with fall precautions until transferred.
Cannot rule out fungal infection-was placed on voriconazole empirically for few days but developed persistent fevers. Now been discontinued 01/28/2025
Cultures so far negative
Does not qualify for bronchoscopy or tissue sampling due to severe thrombocytopenia.
Infectious disease following-Case has been discussed
Continue with current care for now
Provide supplemental oxygen to maintain pulse ox above 90%-currently on room air.
-
Transfuse as necessary
-
Patient is waiting to be transferred to [facility] for further care of his leukemia.
-
DVT prophylaxis with SCD
-
High risk situation.
[2025-01-28] MEDS: MERREM 100 MG IV (13:13)
--- NOTE | 2025-01-28 14:02 | CM ---
Still awaiting transfer to [facility].
Pt to go via BLS ambulance
Dr Elena is receiving MD
[facility] transfer line # [phone]
PLAN: Transfer to [facility] once bed available
--- NOTE | 2025-01-28 18:37 | PTCARENOTE ---
platelet transfusion stopped at 15min check due to elevated temp of 102.9. made aware via TT. BB made aware. tyenol administered. will continue to monitor.
[2025-01-28] MEDS: REMOVE LIDOCAINE PATCH 1 PATCH REMOVE (20:00)
== END 2025-01-28 20:26 | disposition short-term general hospital (02) | DRG 871 ==
LOC: 3 WEST ACU 19:47
PROVIDERS: Internal Medicine; Internal Medicine Infectious Disease; Nurse Practitioner Acute Care; Physician Assistant Medical; ADMITTING PHYSICIAN Internal Medicine; ATTENDING PHYSICIAN Hospitalist; EMERGENCY PHYSICIAN Emergency Medicine; OTHER PHYSICIAN Internal Medicine Critical Care Medicine; OTHER PHYSICIAN Internal Medicine Hematology & Oncology; OTHER PHYSICIAN Internal Medicine Infectious Disease
PROC: 30243R1 Transfusion of Nonautologous Platelets into Central Vein, Percutaneous Approach (ICD-10-PCS; 2025-01-23)
PROC: 30243N1 Transfusion of Nonautologous Red Blood Cells into Central Vein, Percutaneous Approach (ICD-10-PCS; 2025-01-23)
DX: A41.9 Sepsis, unspecified organism (principal); J18.9 Pneumonia, unspecified organism; C92.00 Acute myeloblastic leukemia, not having achieved remission; D61.818 Other pancytopenia; D84.9 Immunodeficiency, unspecified; D84.89 Other immunodeficiencies; E87.1 Hypo-osmolality and hyponatremia; R64 Cachexia; Z11.52 Encounter for screening for COVID-19; Z79.899 Other long term (current) drug therapy; D69.59 Other secondary thrombocytopenia; D46.9 Myelodysplastic syndrome, unspecified; T80.92XA Unspecified transfusion reaction, initial encounter; D70.9 Neutropenia, unspecified; S01.81XA Laceration without foreign body of other part of head, initial encounter; S81.812A Laceration without foreign body, left lower leg, initial encounter; W18.30XA Fall on same level, unspecified, initial encounter; R31.0 Gross hematuria; M35.3 Polymyalgia rheumatica; R50.81 Fever presenting with conditions classified elsewhere; Z86.718 Personal history of other venous thrombosis and embolism; Z87.891 Personal history of nicotine dependence; I10 Essential (primary) hypertension; E78.00 Pure hypercholesterolemia, unspecified
CPT/HCPCS: 70450; 71046; 71260; 80048; 80053; 80202; 81003; 81015; 82247; 83605; 83735; 85025; 85027; 85384; 86078; 86803; 86850; 86900; 86901; 86920; 87040; 87070; 87086; 87449; 87502; 87811; 87899; 93005; 99285; J2185; P9058; P9073; Q9967